=== PATIENT | female | born 1935 | race Caucasian/White ===

== ENCOUNTER 2017-10-28 14:06 | Inpatient (IN) | payer OTHER, MEDICARE ==
[~2017-10-28] VITALS: Ht 152.4 cm; Wt 71.4 kg
[~2017-10-28 14:06] MED LIST: ADVAIR HFA 115-12 GM PO; AMLODIPINE BESYL5 M1 PO; ATENOLOL50 M1 PO; ATORVASTATIN CA10 M1 PO; CITALOPRAM HBR20 MG PO; CLOPIDOGREL75 M1 PO; GABAPENTIN300 M2 PO; HYDROCHLOROTH12.5 M3 PO; METFORMIN HCL500 M3 PO; NAPROXEN375 M2 PO; PROAIR HFA8.5 GM INH; SPIRIVA18 MCG INH
[2017-10-28 14:40] LABS: ABSOLUTE BASOPHIL COUNT 0.1 /CUMM (0.0-0.2); ABSOLUTE EOSINOPHIL COUNT 0.1 /CUMM (0.0-0.7); ABSOLUTE LYMPH COUNT 1.9 /CUMM (1.2-3.4); ABSOLUTE MONOCYTE COUNT 0.8 /CUMM (0.10-0.60); BASOPHIL % 0.5 % (0.0-2.0); EOSINOPHIL % 0.9 % (0-5); GRANULOCYTE % 75.7 % (42.2-75.2); MEAN CORPUSCULAR HGB 31.9 PG (27.0-31.0); MEAN CORPUSCULAR HGB CONC 33.9 G/DL (33.0-37.0); MEAN PLATELET VOLUME 8.7 FL (7.4-10.4); PLATELET COUNT 235 /CUMM (130-400); RBC DISTRIBUTION WIDTH 13.7 % (11.5-14.5); RED BLOOD CELL CT 4.26 /CUMM (4.20-5.40); WHITE BLOOD CELL COUNT 11.9 /CUMM (4.8-10.8)
--- NOTE | 2017-10-28 18:35 | ED HAND/WRIST INJURY COMPLAINT ---
See Addendum History of Present Illness General Chief Complaint: Animal/Insect Bite Stated Complaint: CAT BITE Source: patient, Exam Limitations: no limitations Vital Signs & Intake/Output Vital Signs & Intake/Output Vital Signs Date Time Temp Pulse Resp B/P B/P Pulse O2 O2 Flow FiO2 Mean Ox Delivery Rate 10/28 1813 98.2 76 24 190/102 92 Room Air 10/28 1432 97.7 79 18 169/63 92 Allergies Coded Allergies: lisinopril (Severe, THROAT AND TONGUE SWELLING 03/13/17) Reconcile Medications Albuterol Sulfate (Proair Hfa) 90 MCG HFA.AER.AD 2 PUF INH Q6-PRN PRN SHORTNESS OF BREATH (Reported) Amlodipine Besylate 5 MG TABLET 1 TAB PO DAILY HEART (Reported) Atenolol 50 MG TABLET 1 TAB PO DAILY HEART (Reported) Atorvastatin Calcium 10 MG TABLET 4 TAB PO QPM CHOLESTEROL (Reported) Citalopram Hydrobromide (Citalopram HBr) 20 MG TABLET 1 TAB PO DAILY MENTAL HEALTH (Reported) Clopidogrel Bisulfate (Clopidogrel) 75 MG TABLET 1 TAB PO DAILY BLOOD THINNER (Reported) Fluticasone Propionate/Sal[place] (Advair Hfa 115-21 Mcg Inhaler) 115 MCG-21 MCG/ ACTUATION HFA.AER.AD 2 PUFF PO BID BREATHING PROBLEMS (Reported) Gabapentin 300 MG CAPSULE 3 CAP PO TID UNKNOWN (Reported) Hydrochlorothiazide 12.5 MG CAPSULE 1 CAP PO DAILY WATER RETENTION (Reported) Metformin HCl 500 MG TABLET 1 TAB PO Q48 DIABETES (Reported) Naproxen 375 MG TABLET 1 TAB PO BID PRN PAIN with food Tiotropium [place] (Spiriva) 18 MCG CAP.W.DEV 1 CAP INH DAILY BREATHING PROBLEMS (Reported) Triage Note: PT STATES HER CAT BIT HER FRIDAY EVENING IN THE LEFT HAND. HAND RED WARM AND SWOLLEN VERY PAINFUL PT HAS BEEN ON ABX FROM THE WALK IN FROM LAST NIGHT. Triage Nurses Notes Reviewed? yes Occurred: friday (ROUGHLY 3 DAYS AGO) Duration: day(s):, constant, continues in ED, getting worse Severity: severe Method of Injury: CAT BITE HPI: PATIENT PRESENTS FOR EVALUATION OF WORSENING SWELLING AND REDNESS AFTER A CAT BITE ON friday. tHE CAT IS THE PATIENT'S house cat that occasionally goes outside. The cat is not ill at this time and according to the patient's often will lash out at his while she is petting it. Past History Travel History Traveled to [place] past 21 day No Medical History Any Pertinent Medical History? see below for history Neurological: NONE EENT: NONE Cardiovascular: hypertension Respiratory: COPD Gastrointestinal: NONE Hepatic: NONE Renal: NONE Musculoskeletal: NONE Psychiatric: NONE Endocrine: diabetes Blood Disorders: NONE Cancer(s): NONE RN INFORMATICS/Reproductive: NONE Surgical History Surgical History: non-contributory Psychosocial History What is your primary language Amharic Tobacco Use: Never used ETOH Use: denies use Illicit Drug Use: denies illicit drug use Family History Hx Contributory? No Review of Systems Review of Systems Constitutional: Reports: no symptoms. EENTM: Reports: no symptoms. Respiratory: Reports: no symptoms. Cardiovascular: Reports: no symptoms. GI: Reports: no symptoms. Genitourinary: Reports: no symptoms. Musculoskeletal: Reports: no symptoms. Skin: Reports: see HPI. Neurological/Psychological: Reports: no symptoms. Hematologic/Endocrine: Reports: no symptoms. Immunologic/Allergic: Reports: no symptoms. All Other Systems: Reviewed and Negative Physical Exam Physical Exam Hand Left: SEE BELOW Hand Right: normal inspection Comments: Gen.: Well-nourished, well-developed, no acute respiratory distress. Head: Normocephalic, atraumatic. Eyes: Normal inspection bilaterally Ears: Normal inspection bilaterally Nose: Normal inspection Throat/mouth : Moist mucosa Neck: Supple, full range of motion, no goiter Heart: Regular rate and rhythm Lungs: Quiet respirations Back: Normal range of motion Extremities: Left hand: Diffuse edema with mild erythema and warmth particularly over the dorsal aspect of the left hand. Scattered ecchymoses. Decreased range of motion of the left hand secondary to pain and swelling. Neurologic: Cranial nerves grossly intact, speech is clear Skin: warm and dry Psychiatric: Calm, cooperative, no apparent delusions or hallucinations Progress Differential Diagnosis: cellulitis, contusion, compartment syndrome, fracture, septic arthritis, sprain, tenosynovitis Plan of Care: Orders Procedure Date/time Status Add-on Test (ER Only) 10/28 175 Active BLOOD CULTURE 10/28 175 Active EKG 10/28 175 Active TROPONIN LEVEL 10/28 1436 Complete LACTIC ACID 10/28 143 Complete COMPREHENSIVE METABOLIC PANEL 10/28 1435 Complete CBC WITHOUT DIFFERENTIAL 10/28 1435 Complete Laboratory Tests 10/28/17 1436: Anion Gap 12, Estimated GFR > 60, BUN/Creatinine Ratio 26.3 H, Glucose 96, Lactic Acid 1.9, Calcium 9.0, Total Bilirubin 0.8, AST 24, ALT 12, Alkaline Phosphatase 94, Troponin I < 0.01, Total Protein 7.3, Albumin 4.0, Globulin 3.3, Albumin/Globulin Ratio 1.2, CBC w Diff NO MAN DIFF REQ, RBC 4.26, MCV 94.0, MCH 31.9 H, MCHC 33.9, RDW 13.7, MPV 8.7, Gran % 75.7 H, Lymphocytes % 15.9 L, Monocytes % 7.0, Eosinophils % 0.9, Basophils % 0.5, Absolute Granulocytes 9.0 H, Absolute Lymphocytes 1.9, Absolute Monocytes 0.8 H, Absolute Eosinophils 0.1 , Absolute Basophils 0.1 Microbiology 10/28 1925 BLOOD: Blood Culture - RECD 10/28 1758 BLOOD: Blood Culture - ORD Diagnostic Imaging: Discussed w/RAD: Radiology Read. Radiology Impression: PATIENT: CELENA ROSENBERG PRESENT AGE: 82 PATIENT ACCOUNT NO: [id number] : 36 LOCATION: [facility] ORDERING PHYSICIAN: Walter AUGUSTE SERVICE DATE: 10/28/17 EXAM TYPE: RAD - XRY-HAND, LEFT EXAMINATION: XR HAND, LEFT CLINICAL INFORMATION: Pain and swelling. Redness of the hand after a cat bite COMPARISON: None TECHNIQUE: PA, lateral, and oblique views of the left hand. FINDINGS: There is soft tissue swelling at the dorsum of the hand. There is no radiopaque foreign body. There is no air in the soft tissue. There is no bone destruction or evidence radiographically for osteomyelitis. There is advanced degenerative change. Joint narrowing bone spur is subchondral sclerosis is present at the first metacarpal carpal joint. There is mild joint narrowing and bone spurring at the IP joints of the digits. There is an old healed fracture of the distal radius with residual deformity. The old fracture fragment at the ulnar styloid is nonunited. IMPRESSION: 1. Soft tissue swelling of dorsum of hand. No radiopaque foreign body or air in the soft tissue. No radiographic evidence for osteomyelitis. 2. Degenerative changes of the hand and wrist. 3. Old fracture of the distal radius and ulna. DICTATED BY: Chong Sofia MD DATE/TIME DICTATED:10/28/171857 [employer] SUPERVISOR:LORETTA DATE/TIME TRANSCRIBED:10/28/171857 CONFIDENTIAL, DO NOT COPY WITHOUT APPROPRIATE AUTHORIZATION. <Electronically signed in Other Vendor System> SIGNED BY: Chong Sofia MD 10/28/171902 CXR Impression: PATIENT: CELENA ROSENBERG PRESENT AGE: 82 PATIENT ACCOUNT NO: [id number] : 36 LOCATION: [facility] ORDERING PHYSICIAN: Walter AUGUSTE SERVICE DATE: 10/28/17 EXAM TYPE: RAD - XRY-CHEST XRAY, TWO VIEWS EXAMINATION: XR CHEST CLINICAL INFORMATION: Cough. COMPARISON: Chest x -ray 05/01/2016 TECHNIQUE: 2 views of the chest were obtained. FINDINGS: Status post median sternotomy for CABG. Heart size is normal. There is vascular wall calcifications of aorta. There is no pulmonary vascular congestion. There is no infiltrate or pleural effusion. There is degenerative spondylosis spine with multilevel disc height narrowing and endplate spurring of the vertebrae. There is advanced degenerative change of the left glenohumeral joint. The humeral head and glenoid subchondral sclerosis and cystic change with remodeling of the articular surfaces of the bone and large bone spurs. There is mild degenerative joint disease of the right glenohumeral joint. IMPRESSION: No acute abnormality of the chest. DICTATED BY: Chong Sofia MD DATE/TIME DICTATED:10/28/171899 [employer] SUPERVISOR:LORETTA DATE/TIME TRANSCRIBED:10/28/171899 CONFIDENTIAL, DO NOT COPY WITHOUT APPROPRIATE AUTHORIZATION. <Electronically signed in Other Vendor System> SIGNED BY: Chong Sofia MD 10/28/171904 Comments: 10/28/2017 7:38:25 PM IV antibiotics infusing. Patient appears comfortable. Of note, I feel this is a very low risk bite for rabies. Departure Departure Disposition: STILL A PATIENT Condition: Stable Clinical Impression Primary Impression: Cellulitis of left hand Secondary Impressions: Cat bite of left hand Qualifiers: Encounter type: initial encounter Qualified Codes: S61.452A - Open bite of left hand, initial encounter; W55.01XA - Bitten by cat, initial encounter Referrals: Chauncey-Prince MD,Hilaria (PCP/Family) Departure Forms: Customer Survey General Discharge Information Admission Note Spoke With: Isa Burleson MD Documentation of Exam: Documentation of any treatments & extenuating circumstances including Concerns Regarding Discharge (functional status, medication knowledge or non-compliance, living conditions, etc.) that warrant an admission rather than observation: Patient presents with worsening left hand swelling and redness secondary to a cat bite. Patient has been on Augmentin but has not improved (she has failed outpatient management). Given the potential disability to the left hand ( particularly with Teno synovitis), I feel this patient now requires hospitalization for an aggressive management with IV antibiotics and close clinical monitoring for response to treatment. Patient should have vital signs monitored for the possibility of fever. Culture results should be followed and treatment adjusted accordingly. If patient does not respond appropriately to IV antibiotics then infectious disease and/or hand surgical consultation should be obtained. Given the patient's advanced age and associated medical comorbidities I feel her treatment and recovery will likely be prolonged and somewhat complicated. It is also possible that she might require physical therapy depending on her recovery. She will require a multiple day hospitalization.
--- NOTE | 2017-10-28 19:03 | RADIOLOGY REPORT ---
EXAMINATION: XR HAND, LEFT CLINICAL INFORMATION: Pain and swelling. Redness of the hand after a cat bite COMPARISON: None TECHNIQUE: PA, lateral, and oblique views of the left hand. FINDINGS: There is soft tissue swelling at the dorsum of the hand. There is no radiopaque foreign body. There is no air in the soft tissue. There is no bone destruction or evidence radiographically for osteomyelitis. There is advanced degenerative change. Joint narrowing bone spur is subchondral sclerosis is present at the first metacarpal carpal joint. There is mild joint narrowing and bone spurring at the IP joints of the digits. There is an old healed fracture of the distal radius with residual deformity. The old fracture fragment at the ulnar styloid is nonunited. IMPRESSION: 1. Soft tissue swelling of dorsum of hand. No radiopaque foreign body or air in the soft tissue. No radiographic evidence for osteomyelitis. 2. Degenerative changes of the hand and wrist. 3. Old fracture of the distal radius and ulna.
--- NOTE | 2017-10-28 19:05 | RADIOLOGY REPORT ---
EXAMINATION: XR CHEST CLINICAL INFORMATION: Cough. COMPARISON: Chest x-ray 05/01/2016 TECHNIQUE: 2 views of the chest were obtained. FINDINGS: Status post median sternotomy for CABG. Heart size is normal. There is vascular wall calcifications of aorta. There is no pulmonary vascular congestion. There is no infiltrate or pleural effusion. There is degenerative spondylosis spine with multilevel disc height narrowing and endplate spurring of the vertebrae. There is advanced degenerative change of the left glenohumeral joint. The humeral head and glenoid subchondral sclerosis and cystic change with remodeling of the articular surfaces of the bone and large bone spurs. There is mild degenerative joint disease of the right glenohumeral joint. IMPRESSION: No acute abnormality of the chest.
--- NOTE | 2017-10-28 20:09 | History & Physical ---
Brandon Kellogg 10/28/172008: General Information and HPI History of Present Illness: Ms. Townsend is a 82 yo f with a PMH significant for CAD s/p triple bypass (2009 [place]), left carotid stenosis, DM, HTN, COPD not on home oxygen who presents to the ED after a cat bite Friday. She reports pain 9/10 in severity and is unable to flex her fingers. Patient reports she has 2 cats at home and after petting one of her cats it bit her on the left hand. She went to an urgent care and was given Augmentin which she took 3 doses of but noticed an increased in the amount of swelling today. Patient reports she has had her cat for 13 years and has not seen a wildland fire fighter specialist or received vaccinations "in years". She also reports 2 weeks ago the same cat bit her and she used Neosporin for the wound. Her cat is normally home bound and seldomly goes outside. She denies blurry vision, drooling, nausea, vomiting, paresthesias, weakness, urinary or bowel symptoms. Allergies/Medications Allergies: Coded Allergies: lisinopril (Severe, THROAT AND TONGUE SWELLING 03/13/17) Home Med list Albuterol Sulfate (Proair Hfa) 90 MCG HFA.AER.AD 2 PUF INH Q6-PRN PRN SHORTNESS OF BREATH (Reported) Amlodipine Besylate 5 MG TABLET 1 TAB PO DAILY HEART (Reported) Atenolol 50 MG TABLET 1 TAB PO DAILY HEART (Reported) Atorvastatin Calcium 10 MG TABLET 4 TAB PO QPM CHOLESTEROL (Reported) Citalopram Hydrobromide (Citalopram HBr) 20 MG TABLET 1 TAB PO DAILY MENTAL HEALTH (Reported) Clopidogrel Bisulfate (Clopidogrel) 75 MG TABLET 1 TAB PO DAILY BLOOD THINNER (Reported) Fluticasone Propionate/Salme (Advair Hfa 115-21 Mcg Inhaler) 115 MCG-21 MCG/ ACTUATION HFA.AER.AD 2 PUFF PO BID BREATHING PROBLEMS (Reported) Gabapentin 300 MG CAPSULE 3 CAP PO TID UNKNOWN (Reported) Metformin HCl 500 MG TABLET 1 TAB PO Q48 DIABETES (Reported) Past History Travel History Traveled to [place] past 21 day No Medical History Neurological: NONE EENT: NONE Cardiovascular: hypertension Respiratory: COPD Gastrointestinal: NONE Hepatic: NONE Renal: NONE Musculoskeletal: NONE Psychiatric: NONE Endocrine: diabetes Blood Disorders: NONE Cancer(s): NONE CARE TRAINER/Reproductive: NONE Surgical History Surgical History: non-contributory Past Family/Social History Psychosocial History ETOH Use: denies use Illicit Drug Use: denies illicit drug use Review of Systems Review of Systems Constitutional: Reports: see HPI. Exam & Diagnostic Data Last 24 Hrs of Vital Signs/I&O Vital Signs Date Time Temp Pulse Resp B/P B/P Pulse O2 O2 Flow FiO2 Mean Ox Delivery Rate 10/29 0104 98.9 74 148/69 10/28 2245 98.9 74 20 148/64 95 10/28 2216 98.8 71 22 162/58 92 Room Air 10/28 1959 92 10/28 1813 98.2 76 24 190/102 92 Room Air 10/28 1432 97.7 79 18 169/63 92 Intake & Output 10/29 0800 10/29 0000 10/28 1600 Intake Total 200 Output Total Balance 200 Intake, Oral 200 Patient 155 lb 150 lb Weight Weight Bed scale Reported by Patient Measurement Method Physical Exam General Appearance Alert, Oriented X3, Cooperative, No Acute Distress Skin Thoracotomy scar Neck Supple, No LAD Lymphatic Axillary nl, Cervical nl Cardiovascular Regular Rate, Normal S1, Normal S2 Lungs bilateral wheezing Extremities left hand swelling with mild skin erythema. Unable to flex left fingers , ulnar deviation Last 24 Hrs of Labs/Kendrick: Laboratory Tests 10/28/17 1436: Anion Gap 12, Estimated GFR > 60, BUN/Creatinine Ratio 26.3 H, Glucose 96, Lactic Acid 1.9, Calcium 9.0, Total Bilirubin 0.8, AST 24, ALT 12, Alkaline Phosphatase 94, Troponin I < 0.01, Total Protein 7.3, Albumin 4.0, Globulin 3.3, Albumin/Globulin Ratio 1.2, CBC w Diff NO MAN DIFF REQ, RBC 4.26, MCV 94.0, MCH 31.9 H, MCHC 33.9, RDW 13.7, MPV 8.7, Gran % 75.7 H, Lymphocytes % 15.9 L, Monocytes % 7.0, Eosinophils % 0.9, Basophils % 0.5, Absolute Granulocytes 9.0 H, Absolute Lymphocytes 1.9, Absolute Monocytes 0.8 H, Absolute Eosinophils 0.1 , Absolute Basophils 0.1 Microbiology 10/28 1944 BLOOD: Blood Culture - RECD 10/28 1925 BLOOD: Blood Culture - RECD Diagnostic Data EKG Results SR, HR 71, QTc 466 CXR Results FINDINGS: Status post median sternotomy for CABG. Heart size is normal. There is vascular wall calcifications of aorta. There is no pulmonary vascular congestion. There is no infiltrate or pleural effusion. There is degenerative spondylosis spine with multilevel disc height narrowing and endplate spurring of the vertebrae. There is advanced degenerative change of the left glenohumeral joint. The humeral head and glenoid subchondral sclerosis and cystic change with remodeling of the articular surfaces of the bone and large bone spurs. There is mild degenerative joint disease of the right glenohumeral joint. IMPRESSION: No acute abnormality of the chest. Other Results XR HAND, LEFT FINDINGS: There is soft tissue swelling at the dorsum of the hand. There is no radiopaque foreign body. There is no air in the soft tissue. There is no bone destruction or evidence radiographically for osteomyelitis. There is advanced degenerative change. Joint narrowing bone spur is subchondral sclerosis is present at the first metacarpal carpal joint. There is mild joint narrowing and bone spurring at the IP joints of the digits. There is an old healed fracture of the distal radius with residual deformity. The old fracture fragment at the ulnar styloid is nonunited. IMPRESSION: 1. Soft tissue swelling of dorsum of hand. No radiopaque foreign body or air in the soft tissue. No radiographic evidence for osteomyelitis. 2. Degenerative changes of the hand and wrist. 3. Old fracture of the distal radius and ulna. Assessment/Plan Assessment: Ms. Townsend is a 82 yo f with a PMH significant for CAD s/p triple bypass (2009), left carotid stenosis, DM, HTN, COPD not on home oxygen who presents to the ED after a cat bite with worsening swelling while on oral Augmentin. On admission she had leukocytosis and a left hand x-ray consistent with cellulitis without subcutaneous emphysema. She was given 3 g Unasyn in the ED. Problem list: Left hand cat bite Left hand cellulitis Plan: Admit to general med for further evaluation and management IV Unasyn TRC/nebs PRN Accu-Cheks and NovoLog sliding scale Continue home meds Blood cultures x 2 Plastic surgery consult Pain: Tramadol Diet: Diabetic DVT ppx: sc Enoxaparin Code: FULL As Ranked By This Provider Problem List: 1. Cat bite of left hand Qualifiers Encounter type: initial encounter Qualified Codes: S61.452A - Open bite of left hand, initial encounter; W55.01XA - Bitten by cat, initial encounter 2. Cellulitis of left hand Core Measures/Misc (04/06) Acute Coronary Syndrome ACS Diagnosis: No Congestive Heart Failure Congestive Heart Failure Diagnosis No Cerebrovascular Accident CVA/TIA Diagnosis: No VTE (View Protocol) VTE Risk Factors Age>40 No Mechanical VTE Prophylaxis d/t N/A MechProphylax Ordered No VTE Pharm Prophylaxis d/t NA PharmProphylax ordered Sepsis (View protocol) Sepsis Present: No Louie Jacobson 10/29/17 0436: Resident Review Statement Resident Statement: examined this patient, discussed with internet sales manager, reviewed images Other Findings: 82 woman with past medical history significant for for CAD s/p triple bypass ( 2009), left carotid stenosis, [id number] diabetes mellitus, HTN, COPD not on home oxygen coming in for evaluation of cat bite. She probably has 2 cats at home and one of the cats has a tendency to bite. She had a bite 2 weeks prior which healed with Neosporin. However she was bitten 2 days prior on her left hand and this time the bite was significant. She had worsening swelling and redness of her hand with decreased range of movements. She went to a urgent care yesterday and was given ampicillin but she did not feel better and so she decided to come to the ED. She denies nausea vomiting fever, tingling numbness or decreased sensations, bowel or bladder symptoms. On interview pain was 7 out of 10. Of note the cat has not been vaccinated with rabies although the temperature shot since the past 4 years. Vitals afebrile, heart rate 76, respiratory 24, blood pressure 190/102, 92% on room air Examination pertinent for left hand swelling with redness with intact sensation and normal pulses. Malunion deformity was noted of her left hand and this is due to a fracture that occurred 2 years ago. Her right hand had scars from her previous bite. Rest of examination as above Labs significant for white count of 11.9, hemoglobin 13.6, hematocrit 40.0, platelet 233, sodium 142, potassium 3.8, chloride 105, bicarbonate 25, BUN 21, creatinine 0.8, normal LFTs, troponin 0.01 EKG shows normal sinus rhythm, QTC 466 Chest x-ray no shift acute abnormality Had x-ray shows soft tissue swelling Problem list: Cellulitis secondary to animal bite Diabetes mellitus Hypertension COPD Plan: Mid to general medicine floor, vitals per protocol TRC/ nebs Will continue with IV Unasyn, pending blood cultures Plastic surgery consult in the morning Pain control with tramadol and IV morphine when necessary as needed Accu-Cheks, insulin sliding scale, diabetic diet Continue home medication of Norvasc, atenolol, Citracal upon them, Plavix, gabapentin Will hold metformin DVT prophylaxis subcutaneous Lovenox Full code Isa Burleson 10/29/17 0530: Attending MD Review Statement Attending Statement Attending MD Statement: examined this patient, discuss w/resident/PA/REWRITER, agreed w/resident/PA/REWRITER, reviewed EMR data (avail), reviewed images, amended to note Attending Assessment/Plan: CC: CAD bite PMH: COPD, DM, CAD S/P CABG, left carotid stenosis Patient came to ER for worsening left hand swelling after cat bite. Her house cat bit her on Friday, approximately 4 days back on left hand. She saw that the swelling and pain was getting worse or she went to urgent care where she was prescribed Augmentin. She took 3 doses of antibiotic, without much relief her left hand pain, redness, swelling was worsening so she came to ER. Patient denies any fever or chills at home. The cat is domestic and homebound but vaccination status is unclear. She has multiple cat scratches and bites on her both hands, previous bite was 15 days back for which she used Neosporin and which improved. Otherwise complete ROS unremarkable. Vitals: Afebrile, pulse 79, RR 18, blood pressure 169/63, saturating 92% on room air. On exam: A O 3, cooperative, anxious due to pain, neck supple, JVD normal, no lymphadenopathy, mucosa moist, no focal neurological deficit, no dependent edema , left hand is swollen mostly on the dorsal aspect, red , warm to touch, ROM is restricted carpometacarpal joint and first PIP in all fingers but more so in index finger, peripheral pulses palpable, perfusion time normal , left wrist deformity secondary to previous fracture CVS: S1-S2, RRR, systolic murmur in aortic area. RS: Mild wheezing bilaterally. Abdomen: Soft, NT, ND, bowel sounds present. CXR: No acute abnormality of the chest. Left Hand x-ray: 1. Soft tissue swelling of dorsum of hand. No radiopaque foreign body or air in the soft tissue. No radiographic evidence for osteomyelitis. 2. Degenerative changes of the hand and wrist. 3. Old fracture of the distal radius and ulna. Assessment and plan 82-year-old female with multiple comorbidities mentioned above came with worsening of redness, pain, swelling of left hand after cat bite. On examination left hand appear significantly inflamed, area marked. left hand is swollen mostly on the dorsal aspect, red , warm to touch, ROM is restricted carpometacarpal joint and first PIP in all fingers but more so in index finger, peripheral pulses palpable, perfusion time normal , left wrist deformity secondary to previous fracture. Patient took 3 doses of Augmentin at home without much improvement. We will continue IV Unasyn, get plastic surgeon consult. + Cellulitis secondary to cat bite left hand + History of COPD, DM, CAD S/P CABG, left carotid stenosis - Admit to general medicine - Continue IV Unasyn - Keep hand elevated - Follow-up cultures - Serial examinations - Plastic surgery consult in morning - Adequate pain control - Sliding scale insulin - Continue rest of her home medications - DVT prophylaxis
[2017-10-28 22:45] VITALS: BP 148/64
--- NOTE | 2017-10-29 05:32 | Admission Certification ---
Admission Certification Certification Statement - As attending physician, I certify that at the time of - admission, based on clinical presentation, severity of - symptoms, need for further diagnostic testing and - therapeutic interventions, and risk of adverse outcomes - without in-hospital treatment, in my clinical assessment, - this patient requires an acute hospital stay for a minimum - of two nights or longer. I have also considered psychsocial - factors such as support system, advanced age, financial - issues, cognitive issues, and failed out-patient treatments, - past re-admission history, safety of patient, and lack of - compliance as applicable. Specific rationale supporting this admission is: Cellulitis left hand secondary to cat bite
[2017-10-29 06:00] VITALS: BP 130/60; BP 180/70
[2017-10-29 06:42] VITALS: BP 180/70
[2017-10-29 08:41] LABS: ABSOLUTE BASOPHIL COUNT 0 /CUMM (0.0-0.2); ABSOLUTE EOSINOPHIL COUNT 0.1 /CUMM (0.0-0.7); ABSOLUTE GRANULOCYTE CT 8.1 /CUMM (1.4-6.5); ABSOLUTE LYMPH COUNT 1.2 /CUMM (1.2-3.4); ABSOLUTE MONOCYTE COUNT 0.6 /CUMM (0.10-0.60); BASOPHIL % 0.3 % (0.0-2.0); EOSINOPHIL % 1.1 % (0-5); GRANULOCYTE % 80.3 % (42.2-75.2); HEMATOCRIT 36.1 % (37-47); MEAN CORPUSCULAR HGB 31.8 PG (27.0-31.0); MEAN CORPUSCULAR HGB CONC 33.6 G/DL (33.0-37.0); MEAN CORPUSCULAR VOLUME 94.8 FL (81.0-99.0); MEAN PLATELET VOLUME 9.1 FL (7.4-10.4); PLATELET COUNT 225 /CUMM (130-400); RBC DISTRIBUTION WIDTH 14.1 % (11.5-14.5); RED BLOOD CELL CT 3.81 /CUMM (4.20-5.40); WHITE BLOOD CELL COUNT 10.1 /CUMM (4.8-10.8)
--- NOTE | 2017-10-29 09:28 | PN- Housestaff ---
Subjective Follow-up For: hand cat bite with cellulitis Subjective: No acute events overnight. States that the swelling of her hand has decreased. states that she had some loose stool.also complains of back pain. Review of Systems Constitutional: Reports: see HPI. Objective Last 24 Hrs of Vital Signs/I&O Vital Signs Date Time Temp Pulse Resp B/P B/P Pulse O2 O2 Flow FiO2 Mean Ox Delivery Rate 10/29 1649 92 Nasal 2.0L Cannula 10/29 1600 Nasal 1.0L Cannula 10/29 1529 97.9 64 20 110/60 91 10/29 1150 Room Air 10/29 1150 91 Room Air 10/29 0920 70 168/80 10/29 0920 70 168/80 10/29 0642 98.0 63 20 180/70 92 Room Air 10/29 0600 63 20 180/70 10/29 0104 98.9 74 148/69 10/28 2245 98.9 74 20 148/64 95 10/28 2216 98.8 71 22 162/58 92 Room Air 10/28 1959 92 10/28 1813 98.2 76 24 190/102 92 Room Air Intake & Output 10/29 1600 10/29 0800 10/29 0000 Intake Total 1430 600 200 Output Total 500 Balance 1430 100 200 Intake, IV 130 300 Intake, Oral 1300 300 200 Number 1 2 Bowel Movements Output, Urine 500 Patient 155 lb 155 lb Weight Weight Bed scale Bed scale Measurement Method Physical Exam General Appearance: Alert, Oriented X3, Cooperative, No Acute Distress Skin: left hand bite vail and erythema. Tender to palpation of the hand. Cardiovascular: Regular Rate, Normal S1, Normal S2 Lungs: bilateral basal crackles and diffuse wheezing. Abdomen: Normal Bowel Sounds, Soft, No Tenderness Vascular: right 2+ radial pulses. Did not assess left radial pulse as patient was reluctant due to pain. cap Refill of left hand less than 2 seconds. Current Medications: Current Medications Sig/Romy Start time Last Medication Dose Route Stop Time Status Admin Acetaminophen 0 .STK-MED ONE 10/28 1806 DC IV Acetaminophen 1,000 MG ONCE ONE 10/28 1800 DC 10/28 N/A 1 UNIT IV 10/28 1813 180 Albuterol Sulfate 3 ML Q4P PRN 10/29 1145 AC 10/29 INH 1148 Albuterol Sulfate 3 ML ONCE ONE 10/28 1800 DC 10/28 INH 10/28 1801 1916 Amlodipine Besylate 5 MG DAILY 10/29 1000 AC 10/29 PO 0920 Ampicillin Sodium/ 3,000 MG Q6H 10/29 0100 AC 10/29 Sulbactam Sodium IV 1300 Sodium Chloride 100 ML Ampicillin Sodium/ 0 .STK-MED ONE 10/28 180 DC Sulbactam Sodium .ROUTE Ampicillin Sodium/ 3,000 MG ONCE ONE 10/28 1800 DC 10/28 Sulbactam Sodium IV 10/28 1829 1959 Sodium Chloride 100 ML Atenolol 50 MG DAILY 10/28 2153 AC 10/29 PO 0920 Atorvastatin Calcium 40 MG QPM 10/28 2200 AC 10/29 PO 0103 Budesonide/ 2 PUF BID 10/28 2199 AC 10/29 Formoterol Fumarate INH 09 Citalopram 20 MG DAILY 10/28 2153 AC 10/29 Hydrobromide PO 0920 Clopidogrel Bisulfate 75 MG DAILY 10/29 1000 AC 10/29 PO 0924 Enoxaparin Sodium 40 MG DAILY 10/29 1000 AC 10/29 SC 0921 Gabapentin 900 MG TID 10/28 2200 AC 10/29 PO 1541 Insulin Aspart 0 TIDAC 10/29 0800 AC SC Ipratropium [place] 2.5 ML ONCE ONE 10/28 1800 DC 10/28 INH 10/28 1801 1915 Lactobacillus 1 CAP DAILY 10/29 1000 AC 10/29 Acidophilus PO 1133 Melatonin 5 MG ONCE ONE 10/29 0230 DC 10/29 PO 10/29 0231 0224 Potassium Chloride 40 MEQ ONCE ONE 10/29 1515 DC 10/29 PO 10/29 1516 1541 Tramadol HCl 50 MG Q6 10/29 1200 AC 10/29 PO 1259 Tramadol HCl 50 MG ONE TIME ONE 10/29 0330 DC 10/29 PO 10/29 0331 0330 Last 24 Hrs of Lab/Kendrick Results Last 24 Hrs of Labs/Mics: Laboratory Tests 10/29/17 0622: Anion Gap 13, Estimated GFR > 60, BUN/Creatinine Ratio 20.0, CBC w Diff NO MAN DIFF REQ, RBC 3.81 L, MCV 94.8, MCH 31.8 H, MCHC 33.6, RDW 14.1, MPV 9.1, Gran % 80.3 H, Lymphocytes % 12.3 L, Monocytes % 6.0, Eosinophils % 1.1, Basophils % 0.3, Absolute Granulocytes 8.1 H, Absolute Lymphocytes 1.2, Absolute Monocytes 0.6, Absolute Eosinophils 0.1, Absolute Basophils 0 Microbiology 10/28 1944 BLOOD: Blood Culture - RES 10/28 1925 BLOOD: Blood Culture - RES Assessment/Plan Assessment: Ms. Townsend is a 82 yo f with a PMH significant for CAD s/p triple bypass (2009 [place]), left carotid stenosis, DM, HTN, COPD not on home oxygen who presents to the ED after a cat bite with worsening swelling while on oral Augmentin x2 days. Problem list: Left hand cat bite with cellulitis Shortness of breath Plan: -hand xr: Soft tissue swelling of dorsum of hand. No evidence for osteomyelitis. -cxr: negative for any caute pathology -added probiotic for loose stool. Will consider C. difficile things have stool. -seen by plastics. outpatient f.u -f/u blood cx -cellulitis improving on IV Unasyn -TRC/nebs PRN -Accu-Cheks and NovoLog sliding scale -Continue home meds DVT ppx: sc Enoxaparin Code: FULL Problem List: 1. Cat bite of left hand 2. Cellulitis of left hand Pain Ratin Pain Location: l hand Pain Goal: Pain 4 or less Pain Plan: pain pathway Tomorrow's Labs & Rationales: cbc
--- NOTE | 2017-10-29 11:04 | PN- Att Addend ---
Attending Addendum Attending Brief Note Patient seen and examined, feeling overall better. The left hand looks better than before. It is still painful on range of motion. Vital Signs Date Time Temp Pulse Resp B/P B/P Pulse O2 O2 Flow FiO2 Mean Ox Delivery Rate 10/30 919 70 168/80 10/29 0920 70 168/80 10/29 0642 98.0 63 20 180/70 92 Room Air 10/29 0600 63 20 180/70 10/29 0104 98.9 74 148/69 10/28 2245 98.9 74 20 148/64 95 10/28 2216 98.8 71 22 162/58 92 Room Air 10/28 1959 92 10/28 1813 98.2 76 24 190/102 92 Room Air 10/28 1432 97.7 79 18 169/63 92 on exam: aox3, nad. cv; s1,s2, rrr resp; clear abd; soft, nt, bs+ ext; no edema Laboratory Tests 10/29 10/28 0622 1436 Chemistry Sodium (137 - 145 mmol/L) 144 142 Potassium (3.5 - 5.1 mmol/L) 3.6 3.8 Chloride (98 - 107 mmol/L) 108 H 105 Carbon Dioxide (22 - 30 mmol/L) 23 25 Anion Gap (5 - 16) 13 12 BUN (7 - 17 mg/dL) 14 21 H Creatinine (0.5 - 1.0 mg/dL) 0.7 0.8 Estimated GFR (>60 ml/min) > 60 > 60 BUN/Creatinine Ratio (7 - 25 %) 20.0 26.3 H Glucose (65 - 99 mg/dL) 96 Lactic Acid (0.7 - 2.1 mmol/L) 1.9 Calcium (8.4 - 10.2 mg/dL) 9.0 Total Bilirubin (0.2 - 1.3 mg/dL) 0.8 AST (14 - 36 U/L) 24 ALT (9 - 52 U/L) 12 Alkaline Phosphatase (<127 U/L) 94 Troponin I (< 0.11 ng/ml) < 0.01 Total Protein (6.3 - 8.2 g/dL) 7.3 Albumin (3.5 - 5.0 g/dL) 4.0 Globulin (1.9 - 4.2 gm/dL) 3.3 Albumin/Globulin Ratio (1.1 - 2.2 %) 1.2 Hematology CBC w Diff NO MAN DIFF REQ NO MAN DIFF REQ WBC (4.8 - 10.8 /CUMM) 10.1 11.9 H RBC (4.20 - 5.40 /CUMM) 3.81 L 4.26 Hgb (12.0 - 16.0 G/DL) 12.1 13.6 Hct (37 - 47 %) 36.1 L 40.0 MCV (81.0 - 99.0 FL) 94.8 94.0 MCH (27.0 - 31.0 PG) 31.8 H 31.9 H MCHC (33.0 - 37.0 G/DL) 33.6 33.9 RDW (11.5 - 14.5 %) 14.1 13.7 Plt Count (130 - 400 /CUMM) 225 235 MPV (7.4 - 10.4 FL) 9.1 8.7 Gran % (42.2 - 75.2 %) 80.3 H 75.7 H Lymphocytes % (20.5 - 51.1 %) 12.3 L 15.9 L Monocytes % (1.7 - 9.3 %) 6.0 7.0 Eosinophils % (0 - 5 %) 1.1 0.9 Basophils % (0.0 - 2.0 %) 0.3 0.5 Absolute Granulocytes (1.4 - 6.5 /CUMM) 8.1 H 9.0 H Absolute Lymphocytes (1.2 - 3.4 /CUMM) 1.2 1.9 Absolute Monocytes (0.10 - 0.60 /CUMM) 0.6 0.8 H Absolute Eosinophils (0.0 - 0.7 /CUMM) 0.1 0.1 Absolute Basophils (0.0 - 0.2 /CUMM) 0 0.1 A/P; 82 y/o F with pmh sig for CAD s/p triple bypass (2009 [place]), left carotid stenosis, DM, HTN, COPD not on home oxygen, admitted with left hand cellulitis 2 /2 to cat bite, failing outpatient treatment. Patient is getting Unasyn which will be continued. We'll follow-up on the blood cultures. Plastic surgery consult is pending. Blood pressure high this morning, expect to come down after she sees her antihypertensives. Continue hand elevation. Continue the rest of the medications. Patient on Lovenox for DVT px. Patient encouraged to ambulate.
--- NOTE | 2017-10-29 13:13 | Cons- Plastic Surgery ---
General Information and HPI Consulting Request Date of Consult: 10/29/17 Requested By: Isa Burleson MD Reason for Consult: Cellulitis left hand Source of Information: patient History of Present Illness: Patient home. By Left Hand Previous Friday. Symptoms Worsened Including Pain and Redness and Presented to an Emergency Room for Evaluation. Was Started on Oral Antibiotics with Some Worsening Overnight and Then Presented to [facility] Emergency Room. She Was Admitted Began ON UnASYN with a Rapid Resolution of Swelling Pain and Redness. No fever chills reported Allergies/Medications Allergies: Coded Allergies: lisinopril (Severe, THROAT AND TONGUE SWELLING 03/13/17) Home Med List: Albuterol Sulfate (Proair Hfa) 90 MCG HFA.AER.AD 2 PUF INH Q6-PRN PRN SHORTNESS OF BREATH (Reported) Amlodipine Besylate 5 MG TABLET 1 TAB PO DAILY HEART (Reported) Atenolol 50 MG TABLET 1 TAB PO DAILY HEART (Reported) Atorvastatin Calcium 10 MG TABLET 4 TAB PO QPM CHOLESTEROL (Reported) Citalopram Hydrobromide (Citalopram HBr) 20 MG TABLET 1 TAB PO DAILY MENTAL HEALTH (Reported) Clopidogrel Bisulfate (Clopidogrel) 75 MG TABLET 1 TAB PO DAILY BLOOD THINNER (Reported) Fluticasone Propionate/Salme (Advair Hfa 115-21 Mcg Inhaler) 115 MCG-21 MCG/ ACTUATION HFA.AER.AD 2 PUFF PO BID BREATHING PROBLEMS (Reported) Gabapentin 300 MG CAPSULE 3 CAP PO TID UNKNOWN (Reported) Metformin HCl 500 MG TABLET 1 TAB PO Q48 DIABETES (Reported) Past History Medical History Blood Transfusion Hx: No Type of Reaction: Hives/Urticaria Neurological: NONE EENT: NONE Cardiovascular: hypertension Respiratory: COPD Gastrointestinal: NONE Hepatic: NONE Renal: NONE Musculoskeletal: NONE Psychiatric: NONE Endocrine: diabetes Blood Disorders: NONE Cancer(s): NONE 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 Home Smoking Status: Former Smoker ETOH Use: denies use Illicit Drug Use: denies illicit drug use Review of Systems Review of Systems: All of symptoms negative Exam & Diagnostic Data Vital Signs and I&O Vital Signs Date Time Temp Pulse Resp B/P B/P Pulse O2 O2 Flow FiO2 Mean Ox Delivery Rate 10/29 1150 Room Air 10/29 1150 91 Room Air 10/29 0920 70 168/80 10/29 0920 70 168/80 10/29 0642 98.0 63 20 180/70 92 Room Air 10/29 0600 63 20 180/70 10/29 0104 98.9 74 148/69 10/28 2245 98.9 74 20 148/64 95 10/28 2216 98.8 71 22 162/58 92 Room Air 10/28 1959 92 10/28 1813 98.2 76 24 190/102 92 Room Air 10/28 1432 97.7 79 18 169/63 92 Intake & Output 10/29 1600 10/29 0800 10/29 0000 10/28 1600 10/28 0800 10/28 0000 Intake Total 600 200 Output Total 500 Balance 100 200 Intake, IV 300 Intake, Oral 300 200 Number 2 Bowel Movements Output, Urine 500 Patient 155 lb 155 lb 150 lb Weight Weight Bed scale Bed scale Reported by Patient Measurement Method Physical Exam: Examination of the left upper extremity shows some resolving soft tissue edema in the left dorsal hand. Compared to the previous marked incline the erythema is resolving readily. She has some limited range of motion secondary to disuse and discomfort. She has small puncture sites on the dorsal radial aspect of the left hand without evidence of purulence or necrosis. Assessment/Plan Assessment/Plan Resolving soft tissue infection secondary to cat bite. Encouraged patient to begin using the hand and making a full fist to prevent a disuse syndrome. Washed with soap and water as needed. Follow-up office next week. Consult Acknowledgment - Thank you for your consult request.
[2017-10-29 15:29] VITALS: BP 110/60
[2017-10-29 21:49] VITALS: BP 164/60
[2017-10-30 06:33] VITALS: BP 140/66
[2017-10-30 08:54] LABS: ABSOLUTE BASOPHIL COUNT 0.1 /CUMM (0.0-0.2); ABSOLUTE EOSINOPHIL COUNT 0.3 /CUMM (0.0-0.7); ABSOLUTE LYMPH COUNT 1.6 /CUMM (1.2-3.4); ABSOLUTE MONOCYTE COUNT 0.8 /CUMM (0.10-0.60); BASOPHIL % 0.6 % (0.0-2.0); EOSINOPHIL % 3.5 % (0-5); GRANULOCYTE % 68.2 % (42.2-75.2); HEMATOCRIT 33.5 % (37-47); MEAN CORPUSCULAR HGB CONC 33.4 G/DL (33.0-37.0); MEAN CORPUSCULAR VOLUME 95.9 FL (81.0-99.0); MEAN PLATELET VOLUME 8.9 FL (7.4-10.4); PLATELET COUNT 231 /CUMM (130-400); RBC DISTRIBUTION WIDTH 14.2 % (11.5-14.5); RED BLOOD CELL CT 3.49 /CUMM (4.20-5.40); WHITE BLOOD CELL COUNT 8.8 /CUMM (4.8-10.8)
--- NOTE | 2017-10-30 10:57 | PN- Housestaff ---
Subjective Follow-up For: cat bite cellulitis Subjective: No acute events overnight. Patient states that she was able to somewhat use her left hand more last night. Believes the swelling and erythema have slightly improved. Review of Systems Constitutional: Reports: see HPI. Objective Last 24 Hrs of Vital Signs/I&O Vital Signs Date Time Temp Pulse Resp B/P B/P Pulse O2 O2 Flow FiO2 Mean Ox Delivery Rate 10/30 1600 Nasal 2.0L Cannula 10/30 1349 98.8 63 20 128/60 92 Nasal 2.0L Cannula 10/30 1344 91 Nasal 2.0L Cannula 10/30 0920 92 Nasal 2.0L Cannula 10/30 0833 62 140/66 10/30 0832 62 140/66 10/30 0800 92 Nasal 2.0L Cannula 10/30 0633 98.2 62 20 140/66 96 Nasal 2.0L Cannula 10/30 0000 Nasal 1.0L Cannula 10/29 2149 98.2 78 24 164/60 92 Nasal 2.0L Cannula Intake & Output 10/30 1600 10/30 0800 10/30 0000 Intake Total 580 350 930 Output Total Balance 580 350 930 Intake, IV 100 250 130 Intake, Oral 480 100 800 Number 0 Bowel Movements Physical Exam General Appearance: Alert, Oriented X3, Cooperative, Mild Distress Skin: left hand cat bite vail and erythema. Tenderness to palpation Cardiovascular: Regular Rate, Normal S1, Normal S2 Lungs: diffuse rhonchi and basilar crackles Abdomen: Normal Bowel Sounds, Soft, No Tenderness Extremities: R hand 2+ radial pulses Current Medications: Current Medications Sig/Romy Start time Last Medication Dose Route Stop Time Status Admin Albuterol Sulfate 3 ML Q4P PRN 10/29 1145 AC 10/30 INH 1340 Amlodipine Besylate 5 MG DAILY 10/29 1000 AC 10/30 PO 0832 Ampicillin Sodium/ 3,000 MG Q6H 10/29 0100 AC 10/30 Sulbactam Sodium IV 1328 Sodium Chloride 100 ML Atenolol 50 MG DAILY 10/28 2152 AC 10/30 PO 08 Atorvastatin Calcium 40 MG QPM 10/28 2199 AC 10/29 PO 202 Budesonide/ 2 PUF BID 10/28 220 AC 10/30 Formoterol Fumarate INH 0834 Citalopram 20 MG DAILY 10/28 2152 AC 10/30 Hydrobromide PO 0833 Clopidogrel Bisulfate 75 MG DAILY 10/29 1000 AC 10/30 PO 0832 Enoxaparin Sodium 40 MG DAILY 10/29 1000 AC 10/30 SC 1035 Furosemide 20 MG ONCE ONE 10/30 1530 DC 10/30 IV 10/30 1531 1653 Gabapentin 900 MG TID 10/28 2200 AC 10/30 PO 1329 Guaifenesin 600 MG BID 10/30 1000 AC 10/30 PO 1327 Insulin Aspart 0 TIDAC 10/29 0800 AC 10/30 SC 1652 Lactobacillus 1 CAP DAILY 10/29 1000 AC 10/30 Acidophilus PO 0832 Loratadine 10 MG DAILY 10/30 0913 AC 10/30 PO 1327 Tramadol HCl 50 MG Q6 10/29 1200 AC 10/30 PO 1652 Last 24 Hrs of Lab/Kendrick Results Last 24 Hrs of Labs/Mics: Laboratory Tests 10/30/17713: CBC w Diff NO MAN DIFF REQ, RBC 3.49 L, MCV 95.9, MCH 32.0 H, MCHC 33.4, RDW 14.2, MPV 8.9, Gran % 68.2, Lymphocytes % 18.7 L, Monocytes % 9.0, Eosinophils % 3.5, Basophils % 0.6, Absolute Granulocytes 6.0, Absolute Lymphocytes 1.6, Absolute Monocytes 0.8 H, Absolute Eosinophils 0.3, Absolute Basophils 0.1 Assessment/Plan Assessment: Ms. Townsend is a 82 yo f with a PMH significant for CAD s/p triple bypass (2009 [place]), left carotid stenosis, DM, HTN, COPD not on home oxygen who presents to the ED after a cat bite with worsening swelling while on oral Augmentin x2 days. Problem list: Left hand cat bite with cellulitis Shortness of breath ?fluid overload Plan: -hand xr: Soft tissue swelling of dorsum of hand. No evidence for osteomyelitis. -reapeat cxr: Worsening congestion. Await for final read. -Start incentive spirometry, fexofenadine that she takes at home, Mucinex for congestion -Given IV Lasix 20 mg for possible fluid overload -cont probiotic for loose stool. Will consider C. difficile if she continues to have loose stool. -seen by plastics. outpatient f.u -f/u blood cx -cellulitis improving on IV Unasyn -TRC/nebs PRN -Accu-Cheks and NovoLog sliding scale -Continue home meds DVT ppx: sc Enoxaparin Code: FULL Problem List: 1. Shortness of breath 2. Cat bite of left hand 3. Cellulitis of left hand Pain Ratin Pain Location: L hand Pain Goal: Pain 4 or less Pain Plan: pain pathway Tomorrow's Labs & Rationales: bep
--- NOTE | 2017-10-30 11:26 | PN- Att Addend ---
Attending Addendum Attending Brief Note Patient seen and examined, was hypoxic this am. O2 sats dropped to 76% on RA per RN. Left hand still seems to be swollen. Complaining of cough all night. Vital Signs Date Time Temp Pulse Resp B/P B/P Pulse O2 O2 Flow FiO2 Mean Ox Delivery Rate 10/30 0920 92 Nasal 2.0L Cannula 10/30 0833 62 140/66 10/30 0832 62 140/66 10/30 0800 92 Nasal 2.0L Cannula 10/30 0633 98.2 62 20 140/66 96 Nasal 2.0L Cannula 10/30 0000 Nasal 1.0L Cannula 10/29 2149 98.2 78 24 164/60 92 Nasal 2.0L Cannula 10/29 1649 92 Nasal 2.0L Cannula 10/29 1600 Nasal 1.0L Cannula 10/29 1529 97.9 64 20 110/60 91 10/29 1150 Room Air 10/29 1150 91 Room Air on exam; aox3, nad. cv; s1,s2, rrr resp; slightly course bs right base abd; soft, nt, bs+ ext; no edema skin; left hand is still slightly erythematous and swollen. Laboratory Tests 10/30 0714 Hematology CBC w Diff NO MAN DIFF REQ WBC (4.8 - 10.8 /CUMM) 8.8 RBC (4.20 - 5.40 /CUMM) 3.49 L Hgb (12.0 - 16.0 G/DL) 11.2 L Hct (37 - 47 %) 33.5 L MCV (81.0 - 99.0 FL) 95.9 MCH (27.0 - 31.0 PG) 32.0 H MCHC (33.0 - 37.0 G/DL) 33.4 RDW (11.5 - 14.5 %) 14.2 Plt Count (130 - 400 /CUMM) 231 MPV (7.4 - 10.4 FL) 8.9 Gran % (42.2 - 75.2 %) 68.2 Lymphocytes % (20.5 - 51.1 %) 18.7 L Monocytes % (1.7 - 9.3 %) 9.0 Eosinophils % (0 - 5 %) 3.5 Basophils % (0.0 - 2.0 %) 0.6 Absolute Granulocytes (1.4 - 6.5 /CUMM) 6.0 Absolute Lymphocytes (1.2 - 3.4 /CUMM) 1.6 Absolute Monocytes (0.10 - 0.60 /CUMM) 0.8 H Absolute Eosinophils (0.0 - 0.7 /CUMM) 0.3 Absolute Basophils (0.0 - 0.2 /CUMM) 0.1 A/P; 82 y/o F with pmh sig for CAD s/p triple bypass (2009 [place]), left carotid stenosis, DM, HTN, COPD not on home oxygen, admitted with left hand cellulitis 2 /2 to cat bite, failing outpatient treatment. This morning has developed hypoxia and also complains of cough. We'll check the chest x-ray. Would encourage incentive spirometry and out of bed to chair with ambulation. We'll check laboratory O2 sat on oxygen. Patient was encouraged to keep her arm elevated been she's not actively using her hand. Encourage use of hand to avoid disuse syndrome. Antitussive medication for cough. If she brings up any sputum, please check the sputum culture. Agree with starting the patient on her antihistamine. Continue the rest of the meds. [facility] nebs would also help. DVT prophylaxis: Lovenox. Dispo: Possbible DC tomorrow if improves.
--- NOTE | 2017-10-30 13:45 | PN- Plastic Surgery ---
Subjective Subjective: Patient states pain is better in the left hand and wrist Review of Systems: Some increasing shortness of breath currently using nasal oxygen, otherwise all systems negative Objective Vital Signs and I&Os Vital Signs Date Time Temp Pulse Resp B/P B/P Pulse O2 O2 Flow FiO2 Mean Ox Delivery Rate 10/30 0920 92 Nasal 2.0L Cannula 10/30 0833 62 140/66 10/30 0832 62 140/66 10/30 0800 92 Nasal 2.0L Cannula 10/30 0633 98.2 62 20 140/66 96 Nasal 2.0L Cannula 10/30 0000 Nasal 1.0L Cannula 10/29 2149 98.2 78 24 164/60 92 Nasal 2.0L Cannula 10/29 1649 92 Nasal 2.0L Cannula 10/29 1600 Nasal 1.0L Cannula 10/29 1529 97.9 64 20 110/60 91 Intake & Output 10/30 1600 10/30 0800 10/30 0000 10/29 1600 10/29 0800 10/29 0000 Intake Total 100 484 8206 600 200 Output Total 500 Balance 981 620 7206 100 200 Intake, IV 250 130 130 300 Intake, Oral 491 889 0203 300 200 Number 1 2 Bowel Movements Output, Urine 500 Patient 155 lb 155 lb Weight Weight Bed scale Bed scale Measurement Method Physical Exam: Erythema remains within the borders of the ink neva. Edema remains dorsally. Range of motion slightly better but still limited. No necrosis or fluctuance. Assessment/Plan Assessment/Plan Cellulitis. Have encouraged patient to actively use the hand to prevent disuse. Have instructed her at the bedside. Would continue intravenous until more improvement seen at the site. Will follow up tomorrow.
[2017-10-30 13:49] VITALS: BP 128/60
--- NOTE | 2017-10-30 15:38 | RADIOLOGY REPORT ---
EXAMINATION: XR CHEST CLINICAL INFORMATION: Question fluid overload. Shortness of breath. COMPARISON: Several prior chest x-rays, most recent of which is dated 10/28/2017. TECHNIQUE: 2 views of the chest were obtained on 3 images. FINDINGS: The patient is status post median sternotomy and CABG surgery. The cardiomediastinal silhouette is enlarged with a left ventricular configuration seen. Calcification of the aortic arch is noted. Lungs bilaterally are symmetrically expanded and demonstrate central vascular congestion and mild streaky perihilar opacities, progressive when compared to prior study and suspicious for subtle pulmonary edema. Lung bases are suboptimally assessed due to overlapping soft tissues of the breasts. There is mild subsegmental atelectasis seen in the lung bases, left greater than right. No significant pleural fluid is noted. There is abnormal sclerotic density and flattening of the left humeral head with narrowing and prominent degenerative changes at the glenohumeral joint. Findings are unchanged from prior study. Extensive degenerative spurring and sclerosis along the anterior margins of the thoracic spine seen. IMPRESSION: 1. Findings are consistent with mild pulmonary edema. Associated areas of mild bibasilar subsegmental atelectasis are seen. 2. Cardiomegaly with left ventricular configuration. 3. Abnormal appearance of the left glenohumeral joint, unchanged. This may be related to avascular necrosis and secondary degenerative change or an inflammatory arthropathy. Close clinical correlation is requested.
[2017-10-30 21:48] VITALS: BP 144/68
[2017-10-30 21:52] VITALS: BP 144/60
[2017-10-31 06:59] VITALS: BP 150/70
--- NOTE | 2017-10-31 07:31 | PN- Housestaff ---
Subjective Follow-up For: cat bite cellulitis Subjective: No acute events overnight. This a.m. the left hand erythema seemed to be slightly improved however later in the morning when she moved her hand from an elevated positioned it became more erythematous. Still feels congested. Review of Systems Constitutional: Reports: see HPI. Objective Last 24 Hrs of Vital Signs/I&O Vital Signs Date Time Temp Pulse Resp B/P B/P Pulse O2 O2 Flow FiO2 Mean Ox Delivery Rate 10/31 1358 92 Nasal 3.0L Cannula 10/31 1342 99.1 66 18 120/80 92 Nasal 2.0L Cannula 10/31 0949 68 150/70 10/31 0949 68 150/70 10/31 0800 Nasal 2.0L Cannula 10/31 0659 99.0 68 20 150/70 91 Nasal 2.0L Cannula 10/31 0000 Nasal 2.0L Cannula 10/30 2152 99.5 73 20 144/60 92 Nasal 2.0L Cannula 10/30 2008 92 Nasal 2.0L Cannula 10/30 1600 Nasal 2.0L Cannula Intake & Output 10/31 1600 10/31 0800 10/31 0000 Intake Total 350 430 Output Total 400 Balance -50 430 Intake, IV 250 150 Intake, Oral 100 280 Output, Urine 400 Physical Exam General Appearance: Alert, Oriented X3, Cooperative, No Acute Distress Skin: left cat bite resolving. erythematous - no improvement from yesterday. tender to palpation Cardiovascular: Regular Rate, Normal S1, Normal S2 Lungs: course breath sounds. Diffuse mild wheezing. Abdomen: Normal Bowel Sounds, Soft, No Tenderness Extremities: 2+ R radial pulse. Assessment/Plan Assessment: Ms. Townsend is a 82 yo f with a PMH significant for CAD s/p triple bypass (2009 [place]), left carotid stenosis, DM, HTN, COPD not on home oxygen who presents to the ED after a cat bite with worsening swelling while on oral Augmentin x2 days. Problem list: Left hand cat bite with cellulitis Shortness of breath ?fluid overload Plan: -hand xr: Soft tissue swelling of dorsum of hand. No evidence for osteomyelitis. -wrist xr: No radiographic evidence of any osteomyelitis or soft tissue abscess. No significant change since prior study dated 10/28/2017 -repeat cxr: mild pulmonary edema. Associated areas of mild bibasilar subsegmental atelectasis -Start incentive spirometry, fexofenadine that she takes at home, Mucinex for congestion -Given IV Lasix 20 mg for possible fluid overload. Will give another 20mg today -cont probiotic for loose stool. Will consider C. difficile if she continues to have loose stool. -seen by plastics. outpatient f.u -f/u blood cx -cellulitis improving on IV Unasyn -TRC/nebs PRN -Accu-Cheks and NovoLog sliding scale -Continue home meds DVT ppx: sc Enoxaparin Code: FULL Problem List: 1. Cellulitis of left hand Pain Ratin Pain Location: L hand Pain Goal: Pain 4 or less Pain Plan: pain pathway Tomorrow's Labs & Rationales: cbc
--- NOTE | 2017-10-31 10:26 | PN- Att Addend ---
Attending Addendum Attending Brief Note Patient seen and examined, not improved much. The left hand is still significantly swollen and erythematous. Chest x-ray yesterday showed some pulmonary edema. Patient did receive IV Lasix. Vital Signs Date Time Temp Pulse Resp B/P B/P Pulse O2 O2 Flow FiO2 Mean Ox Delivery Rate 10/31 0849 68 150/70 10/31 0949 68 150/70 10/31 0659 99.0 68 20 150/70 91 Nasal 2.0L Cannula 10/31 0000 Nasal 2.0L Cannula 10/30 2152 99.5 73 20 144/60 92 Nasal 2.0L Cannula 10/30 2008 92 Nasal 2.0L Cannula 10/30 1600 Nasal 2.0L Cannula 10/30 1349 98.8 63 20 128/60 92 Nasal 2.0L Cannula 10/30 1344 91 Nasal 2.0L Cannula on exam; aox3, nad. cv; s1,s2, rrr resp; clear abd; soft, nt, bs+ ext; no edema skin: left hand is erythematous, swollen. Left wrist also looks somewhat swollen , + ROM but limited. Laboratory Tests 10/31 0745 Chemistry Sodium (137 - 145 mmol/L) 142 Potassium (3.5 - 5.1 mmol/L) 4.2 Chloride (98 - 107 mmol/L) 105 Carbon Dioxide (22 - 30 mmol/L) 26 Anion Gap (5 - 16) 11 BUN (7 - 17 mg/dL) 19 H Creatinine (0.5 - 1.0 mg/dL) 0.9 Estimated GFR (>60 ml/min) > 60 BUN/Creatinine Ratio (7 - 25 %) 21.1 A/P: 82 y/o F with pmh sig for CAD s/p triple bypass (2009 [place]), left carotid stenosis, DM, HTN, COPD not on home oxygen, admitted with left hand cellulitis 2 /2 to cat bite, failing outpatient treatment. Patient still requiring oxygen. As mentioned, chest x-ray showed some pulmonary edema yesterday. Patient did receive IV Lasix. We'll give another dose of 20 minute grams of IV Lasix today. Patient encouraged to ambulate, told patient's RN to try to taper her oxygen. Incentive spirometry. Please consult infectious disease. Please check left wrist x-ray. If there is any fluid, we might need to consult orthopedic for the arthrocentesis. Continue other current meds. DVT px; Lovenox. Dispo: Possbible DC over the weekend if improves. Need to determine if needs home O2. D/W patient's daughter at bedside.
--- NOTE | 2017-10-31 13:05 | RADIOLOGY REPORT ---
EXAMINATION: XR WRIST, LEFT CLINICAL INFORMATION: Left hand cellulitis. COMPARISON: Left hand done on 10/28/2017. TECHNIQUE: 4 views of the left wrist. FINDINGS: Old healed fractures of the distal radius and ulnar styloid process is noted. Severe degenerative osteoarthrosis is noted at the 1st carpometacarpal joint. Arterial calcification is seen. Mild soft tissue swelling is noted overlying the dorsum of the visualized hand. IMPRESSION: No radiographic evidence of any osteomyelitis or soft tissue abscess formation identified. No significant change since prior study dated 10/28/2017.
[2017-10-31 13:42] VITALS: BP 120/80
[2017-10-31] MEDS ORDERED: PROBIOTIC & AC1 EACH PO (14:35)
--- NOTE | 2017-10-31 15:03 | Cons- Infect Disease ---
General Information and HPI Consulting Request Date of Consult: 10/31/17 Requested By: Alysha Quiles MD Reason for Consult: Cellulitis of the left hand status post cat bite Source of Information: patient, family History of Present Illness: This is an 82-year-old woman with a history of diabetes, coronary artery disease , status post CABG, hypertension and COPD, status post a cat bite to the dorsum of her left hand 3 days prior to admission, seen in a walk-in clinic one day prior to admission because of pain, erythema and edema and begun on Augmentin, admitted on October 28 after presenting to the emergency room with increasing inflammation over the dorsum of the left hand with no fevers or chills. On admission she was afebrile. Laboratory data revealed a white blood cell count of 12,000, BUN/creatinine 21 and 0.8, with normal liver enzymes. X-ray of the left hand reveals soft tissue swelling with no foreign body or air in the soft tissue. Chest x-ray was negative. She was begun on Unasyn and evaluated by Plastic surgery. She has remained afebrile and white blood cell count has decreased but she has had persistent inflammation over the dorsum of the hand with no subjective improvement. She has developed a cough with a chest x-ray on October 30 suggesting pulmonary edema and she was given a dose of Lasix. She also notes a new discomfort in the right ankle today. Allergies/Medications Allergies: Coded Allergies: lisinopril (Severe, THROAT AND TONGUE SWELLING 03/13/17) Home Med List: Albuterol Sulfate (Proair Hfa) 90 MCG HFA.AER.AD 2 PUF INH Q6-PRN PRN SHORTNESS OF BREATH (Reported) Amlodipine Besylate 5 MG TABLET 1 TAB PO DAILY HEART (Reported) Atenolol 50 MG TABLET 1 TAB PO DAILY HEART (Reported) Atorvastatin Calcium 10 MG TABLET 4 TAB PO QPM CHOLESTEROL (Reported) Citalopram Hydrobromide (Citalopram HBr) 20 MG TABLET 1 TAB PO DAILY MENTAL HEALTH (Reported) Clopidogrel Bisulfate (Clopidogrel) 75 MG TABLET 1 TAB PO DAILY BLOOD THINNER (Reported) Fluticasone Propionate/Salme (Advair Hfa 115-21 Mcg Inhaler) 115 MCG-21 MCG/ ACTUATION HFA.AER.AD 2 PUFF PO BID BREATHING PROBLEMS (Reported) Gabapentin 300 MG CAPSULE 3 CAP PO TID UNKNOWN (Reported) Lactobac Cmb #3/Fos/Pantethine (Probiotic & Acidophilus Cap) 300MM-250 CAPSULE 1 CAP PO DAILY GI HEALTH Metformin HCl 500 MG TABLET 1 TAB PO Q48 DIABETES (Reported) Past History Travel History Traveled to [place] past 21 day No Medical History Blood Transfusion Hx: No Neurological: NONE EENT: NONE Cardiovascular: hypertension Respiratory: COPD Gastrointestinal: NONE Hepatic: NONE Renal: NONE Musculoskeletal: NONE Psychiatric: NONE Endocrine: diabetes Blood Disorders: NONE Cancer(s): NONE GEODETIC COMPUTATOR/Reproductive: NONE History of MRSA: No History of VRE: No History of CDIFF: No Isolation History: Standard Surgical History Surgical History: non-contributory Psychosocial History Where Do You Live? Home Smoking Status: Former Smoker ETOH Use: denies use Illicit Drug Use: denies illicit drug use Review of Systems Review of Systems All Other Systems: Reviewed and Negative Exam & Diagnostic Data Last 24 Hrs of Vital Signs/I&O Vital Signs Date Time Temp Pulse Resp B/P B/P Pulse O2 O2 Flow FiO2 Mean Ox Delivery Rate 10/31 1358 92 Nasal 3.0L Cannula 10/31 1342 99.1 66 18 120/80 92 Nasal 2.0L Cannula 10/31 0949 68 150/70 10/31 0949 68 150/70 10/31 0800 Nasal 2.0L Cannula 10/31 0659 99.0 68 20 150/70 91 Nasal 2.0L Cannula 10/31 0000 Nasal 2.0L Cannula 10/30 2152 99.5 73 20 144/60 92 Nasal 2.0L Cannula 10/30 2009 92 Nasal 2.0L Cannula 10/30 1600 Nasal 2.0L Cannula Intake & Output 10/31 1600 10/31 0800 10/31 0000 Intake Total 600 350 430 Output Total 400 Balance 600 -50 430 Intake, IV 120 250 150 Intake, Oral 480 100 280 Output, Urine 400 Physical Exam Other Physical Findings: Afebrile. She is awake and alert in no acute distress. Skin reveals no rash. HEENT negative. Neck is supple with no adenopathy. Lungs scattered rhonchi bilaterally. Heart regular rhythm with no murmur. Abdomen is soft, nontender with positive bowel sounds. Back no CVA tenderness. Extremities erythema, edema and exquisite tenderness over the dorsum of the left hand, with mild ecchymosis, with swelling of the fingers preventing her from making a fist; no inflammation of the right ankle. Neuro is without focality. Last 24 Hours of Lab Results: Laboratory Tests 10/31 0745 Chemistry Sodium (137 - 145 mmol/L) 142 Potassium (3.5 - 5.1 mmol/L) 4.2 Chloride (98 - 107 mmol/L) 105 Carbon Dioxide (22 - 30 mmol/L) 26 Anion Gap (5 - 16) 11 BUN (7 - 17 mg/dL) 19 H Creatinine (0.5 - 1.0 mg/dL) 0.9 Estimated GFR (>60 ml/min) > 60 BUN/Creatinine Ratio (7 - 25 %) 21.1 Last 24 Hours of Kendrick Results: Blood cultures 2 October 28 negative Diagnostic Data Recent Imaging Findings: X-ray of the left hand October 28 reveals soft tissue swelling with no foreign body or air in the soft tissue. Chest x-ray October 28 negative. Chest x-ray October 30 reveals mild pulmonary edema with mild bibasilar subsegmental atelectasis X-ray of the left wrist October 31 no significant change from the previous x-ray, with mild soft tissue swelling over the dorsum of the hand Assessment/Plan Assessment/Plan Impression: This is an 82-year-old woman with a history of diabetes, coronary artery disease , status post CABG, hypertension and COPD, status post a cat bite to the dorsum of her left hand 3 days prior to admission, begun on Augmentin at a walk-in clinic one day prior to admission because of pain, erythema, and edema over the dorsum of the hand, admitted on October 28 with increasing inflammation of the left hand with no fevers or chills, found to be afebrile with a mild leukocytosis, treated over the past 3 days with Unasyn with little subjective improvement but with temperatures remaining normal and white blood cell count decreased. She appears to have persistent inflammation over the dorsum of the left hand and am concerned that she may require drainage for resolution. The rapid onset of infection suggests infection with Pasteurella, which can invade the synovium and cause a tenosynovitis, which might require drainage. She has been treated with Unasyn, which should provide adequate coverage for Pasteurella, and this can be continued pending Plastic surgery reevaluation. Her cough and mild dyspnea may be secondary to pulmonary edema, suggested on the chest x-ray, and she has been treated with Lasix. Suggestion: 1. Await Plastic surgery reevaluation 2. Elevate left hand (perhaps with a sling attached to an IV pole) pending above 3. Continue Unasyn pending above Dr. Simth will be covering over the weekend Consult Acknowledgment - Thank you for your consult request.
--- NOTE | 2017-10-31 18:17 | PN- Plastic Surgery ---
Subjective Subjective: Some shortness of breath after self dc'ing nasal cannula O2. Objective Vital Signs and I&Os Vital Signs Date Time Temp Pulse Resp B/P B/P Pulse O2 O2 Flow FiO2 Mean Ox Delivery Rate 10/31 1358 92 Nasal 3.0L Cannula 10/31 1342 99.1 66 18 120/80 92 Nasal 2.0L Cannula 10/31 0949 68 150/70 10/31 0949 68 150/70 10/31 0800 Nasal 2.0L Cannula 10/31 0659 99.0 68 20 150/70 91 Nasal 2.0L Cannula 10/31 0000 Nasal 2.0L Cannula 10/30 2152 99.5 73 20 144/60 92 Nasal 2.0L Cannula 10/30 2009 92 Nasal 2.0L Cannula Intake & Output 10/31 1600 10/31 0800 10/31 0000 10/30 1600 10/30 0800 10/30 0000 Intake Total 600 350 430 580 350 930 Output Total 400 Balance 600 -50 430 580 350 930 Intake, IV 120 250 150 100 250 130 Intake, Oral 480 100 280 480 100 800 Number 0 Bowel Movements Output, Urine 400 Physical Exam: Left hand appears similar to yesterday's exam. She has mild edema dorsally with erythema that does not extend beyond the originally ink marked borders. There is no crepitance there is no drainage from the puncture sites. The puncture sites are without necrosis, she has pain-free passive extension of the digits. Soft tissue swelling prevents full fist. Assessment/Plan Assessment/Plan Cellulitis secondary to It. Expectations would have been more rapid resolution but there is no evidence on clinical exam to suggest a deeper collection requiring drainage. Without active drainage or fluctuance intervention surgically not currently indicated. Please contact sterile supply for a Kannan pillow i.e. yellow foam pillow to help support the hand.
[2017-10-31 20:10] VITALS: BP 168/60
--- NOTE | 2017-10-31 22:16 | Event Note ---
Event Note Event Note: S: Paged stating patient is short of breath with 89% O2 sat on 3L B: Patient is an 82 y/o female with PMH of CAD s/p triple bypass (2009), left carotid stenosis, DM, HTN, COPD not on home oxygen who presents to the ED after a cat bite with worsening swelling while on oral Augmentin x2 days currently being treated for cellulitis with IV Unasyn. Patient had CXR showing vascular congestion and was given lasix 20mg IV today for shorness of breath and concern of fluid overloaded. Patient was evaluated at bedside. Was resting comfortably in no acute respiratory distress. Patient received a respiratory treatment around 7PM. Patient is currently saturating at 89% on 3L. Patient's lung exam: +bibasilar crackles and rhonchi. No JVD, no lower extremity edema. Remainder of exam benign. Patient's hand is reportedly improving. Patient is ~3L fluid balance positive. A/P: Patient's shortness of breath likely secondary to fluid overload. - will continue O2 supplement - will check ABG - will give another dose of lasix - continue TRC/DuoNeb
[2017-10-31 22:27] VITALS: BP 140/60
[2017-11-01 06:19] VITALS: BP 104/60
--- NOTE | 2017-11-01 08:54 | PN- Housestaff ---
See Addendum Subjective Follow-up For: cat bite cellulitis Subjective: No acute events overnight. Now complains of R ankle swelling and pain. States difficulty weightbearing with right foot. Review of Systems Constitutional: Reports: see HPI. Objective Last 24 Hrs of Vital Signs/I&O Vital Signs Date Time Temp Pulse Resp B/P B/P Pulse O2 O2 Flow FiO2 Mean Ox Delivery Rate 11/01 1337 99.0 80 18 110/82 92 Nasal 3.0L Cannula 11/01 1025 99.0 64 20 114/64 11/01 1023 99.0 64 20 114/64 11/01 0840 93 Nasal 3.0L Cannula 11/01 0800 Nasal 3.0L Cannula 11/01 0619 99.0 56 20 104/60 92 Nasal 2.0L Cannula 11/01 0000 91 Nasal 3.0L Cannula 10/31 2227 99.0 75 20 140/60 91 10/31 2009 100.2 75 24 168/60 89 Nasal 3.0L Cannula 10/31 1920 94 Nasal 3.0L Cannula 10/31 1600 Nasal 3.0L Cannula Intake & Output 11/01 1600 11/01 0800 11/01 0000 Intake Total 800 510 510 Output Total 600 200 700 Balance 200 310 -190 Intake, IV 150 150 Intake, Oral 800 360 360 Output, Urine 600 200 700 Patient 155 lb Weight Physical Exam General Appearance: Alert, Oriented X3, Cooperative Skin: left hand cellulitis still erythematous and swollen Cardiovascular: Regular Rate, Normal S1, Normal S2 Lungs: Clear to Auscultation, Normal Air Movement Abdomen: Normal Bowel Sounds, Soft, No Tenderness Extremities: right ankle swollen tender to palpation Vascular: 2+ radial pulses Assessment/Plan Assessment: Ms. Townsend is a 82 yo f with a PMH significant for CAD s/p triple bypass (2009 [place]), left carotid stenosis, DM, HTN, COPD not on home oxygen who presents to the ED after a cat bite with worsening swelling while on oral Augmentin x2 days. Problem list: Left hand cat bite with cellulitis Shortness of breath ?fluid overload History of gout Plan: -We'll start naproxen 500 mg twice a day given acute onset of ankle swelling and pain and history of gout but uric acid normal -ankle XR: 1. Mild osteoarthrosis.2. Nonspecific mild periarticular soft tissue swelling.3. Arterial calcifications.4. Large posterior superior and small posterior plantar calcaneal spurs. -hand xr: Soft tissue swelling of dorsum of hand. No evidence for osteomyelitis. -wrist xr: No radiographic evidence of any osteomyelitis or soft tissue abscess. No significant change since prior study dated 10/28/2017 -repeat cxr: mild pulmonary edema. Associated areas of mild bibasilar subsegmental atelectasis -Start incentive spirometry, fexofenadine that she takes at home, Mucinex for congestion -Given IV Lasix 20 mg x2 -cont probiotic for loose stool. Will consider C. difficile if she continues to have loose stool. -seen by plastics. outpatient f.u -f/u blood cx -cellulitis improving on IV Unasyn -TRC/nebs PRN -Accu-Cheks and NovoLog sliding scale -Continue home meds DVT ppx: sc Enoxaparin Code: FULL Problem List: 1. Shortness of breath 2. Cat bite of left hand 3. Right ankle pain Pain Ratin Pain Location: R ankle and knee Pain Goal: Pain 4 or less Pain Plan: pain pathway Tomorrow's Labs & Rationales: cbc bep
[2017-11-01 09:18] LABS: ABSOLUTE BASOPHIL COUNT 0 /CUMM (0.0-0.2); ABSOLUTE EOSINOPHIL COUNT 0.3 /CUMM (0.0-0.7); ABSOLUTE GRANULOCYTE CT 7.8 /CUMM (1.4-6.5); ABSOLUTE LYMPH COUNT 1.1 /CUMM (1.2-3.4); ABSOLUTE MONOCYTE COUNT 0.8 /CUMM (0.10-0.60); BASOPHIL % 0.5 % (0.0-2.0); EOSINOPHIL % 3.1 % (0-5); GRANULOCYTE % 77.9 % (42.2-75.2); HEMATOCRIT 36.4 % (37-47); MEAN CORPUSCULAR HGB 31.6 PG (27.0-31.0); MEAN CORPUSCULAR HGB CONC 33.3 G/DL (33.0-37.0); MEAN CORPUSCULAR VOLUME 94.8 FL (81.0-99.0); MEAN PLATELET VOLUME 8.9 FL (7.4-10.4); PLATELET COUNT 264 /CUMM (130-400); RBC DISTRIBUTION WIDTH 13.8 % (11.5-14.5); RED BLOOD CELL CT 3.84 /CUMM (4.20-5.40); WHITE BLOOD CELL COUNT 10.1 /CUMM (4.8-10.8)
[2017-11-01 13:37] VITALS: BP 110/82
--- NOTE | 2017-11-01 15:45 | RADIOLOGY REPORT ---
EXAMINATION: XR ANKLE, RIGHT CLINICAL INFORMATION: 82-year-old female presented with new onset right ankle swelling. COMPARISON: None TECHNIQUE: AP, lateral, and mortise views of the right ankle. FINDINGS: The bony alignment is intact. The cortices are intact. Mild osteoarthrosis is noted in the form of mild osteophyte formation along the articular surface. The joint space is relatively well maintained. Nonspecific periarticular soft tissue swelling is present. Arterial calcifications are present. Incidental note is made of large posterior superior and small posterior plantar calcaneal spurs. No radiographic evidence of superimposed acute fracture or subluxation or dislocation is seen. IMPRESSION: 1. Mild osteoarthrosis. 2. Nonspecific mild periarticular soft tissue swelling. 3. Arterial calcifications. 4. Large posterior superior and small posterior plantar calcaneal spurs.
--- NOTE | 2017-11-01 20:45 | RADIOLOGY REPORT ---
EXAMINATION: XR PORTABLE CHEST CLINICAL INFORMATION: Fluid overload, shortness of breath COMPARISON: Prior chest x-rays, most recent on 10/30/2017 TECHNIQUE: Portable frontal view of the chest was obtained. FINDINGS: Stable cardiomediastinal silhouette with mild cardiomegaly. Prior CABG. The median sternotomy wires are intact. Pulmonary venous congestion and mild interstitial edema at the lung bases are fairly similar to 10/30/2017 x-ray. There is diffuse bilateral increased pulmonary bronchovascular markings, fairly similar to 05/01/2016 exam, chronic finding. Blunting of the left lateral costophrenic angle noted which could represent a small left-sided pleural effusion. No pneumothorax. Chronic deformity of the left humeral head noted. IMPRESSION: Mild cardiomegaly, pulmonary venous congestion and mild interstitial edema at the lung bases, fairly similar to 10/30/2017 chest x-ray. A small left-sided pleural effusion.
[2017-11-01 22:24] VITALS: BP 120/80
[2017-11-02 05:59] VITALS: BP 122/72
[2017-11-02 08:36] LABS: ABSOLUTE BASOPHIL COUNT 0 /CUMM (0.0-0.2); ABSOLUTE EOSINOPHIL COUNT 0.4 /CUMM (0.0-0.7); ABSOLUTE GRANULOCYTE CT 4.6 /CUMM (1.4-6.5); ABSOLUTE LYMPH COUNT 1.5 /CUMM (1.2-3.4); ABSOLUTE MONOCYTE COUNT 0.7 /CUMM (0.10-0.60); BASOPHIL % 0.5 % (0.0-2.0); EOSINOPHIL % 5.2 % (0-5); GRANULOCYTE % 63.3 % (42.2-75.2); HEMATOCRIT 35.2 % (37-47); MEAN CORPUSCULAR HGB 31.6 PG (27.0-31.0); MEAN CORPUSCULAR HGB CONC 33.3 G/DL (33.0-37.0); MEAN CORPUSCULAR VOLUME 95.1 FL (81.0-99.0); MEAN PLATELET VOLUME 8.6 FL (7.4-10.4); PLATELET COUNT 277 /CUMM (130-400); RBC DISTRIBUTION WIDTH 13.7 % (11.5-14.5); WHITE BLOOD CELL COUNT 7.3 /CUMM (4.8-10.8)
--- NOTE | 2017-11-02 10:34 | PN- Housestaff ---
Venkatesh NOBLE,[facility] 11/02/17 1034: Subjective Follow-up For: Cat bite cellulitis R ankle pain ?gout Subjective: CXR last night revealed pulm congestion, IV lasix given. R foot ankle still hurting. States L hand erythema mildly improved. Still having SOB. Review of Systems Constitutional: Reports: see HPI. Objective Last 24 Hrs of Vital Signs/I&O Vital Signs Date Time Temp Pulse Resp B/P B/P Pulse O2 O2 Flow FiO2 Mean Ox Delivery Rate 11/02 1337 98.5 71 18 120/80 91 Nasal 5.0L Cannula 11/02 0925 93 Nasal 5.0L Cannula 11/02 0800 92 Nasal 7.0L Cannula 11/02 0749 98.9 66 20 122/72 11/02 0747 98.9 66 20 122/72 11/02 0559 98.9 57 20 122/72 93 Nasal 7.0L Cannula 11/02 0145 92 Nasal 7.0L Cannula 11/02 0000 92 Nasal 7.0L Cannula 11/01 2224 99.4 966 20 120/80 91 Intake & Output 11/02 1600 11/02 0800 11/02 0000 Intake Total 800 540 610 Output Total 1500 200 400 Balance -700 340 210 Intake, IV 300 130 Intake, Oral 800 240 480 Output, Urine 1500 200 400 Physical Exam General Appearance: Alert, Oriented X3, Cooperative Cardiovascular: Regular Rate, Normal S1, Normal S2 Lungs: basilar crackles and rhonchi Abdomen: Normal Bowel Sounds, Soft, No Tenderness Extremities: 2+ radial pulses. R ankle tender to palpation. L hand erythema improved. Assessment/Plan Assessment: 82 yo f with a PMH significant for CAD s/p triple bypass (2009 [place]), left carotid stenosis, DM, HTN, COPD not on home oxygen who presents to the ED after a cat bite with worsening swelling while on oral Augmentin x2 days. Problem list: Left hand cat bite with cellulitis Shortness of breath ?fluid overload History of gout Plan: -Cr slightly rising to 1.1. will hold naproxen. -cxr revaeled vascular congestion. iv lasix given. will give 20mg more lasix today -ankle XR: 1. Mild osteoarthrosis.2. Nonspecific mild periarticular soft tissue swelling.3. Arterial calcifications.4. Large posterior superior and small posterior plantar calcaneal spurs. -hand xr: Soft tissue swelling of dorsum of hand. No evidence for osteomyelitis. -wrist xr: No radiographic evidence of any osteomyelitis or soft tissue abscess. No significant change since prior study dated 10/28/2017 -repeat cxr: mild pulmonary edema. Associated areas of mild bibasilar subsegmental atelectasis -Start incentive spirometry, fexofenadine that she takes at home, Mucinex for congestion -Given IV Lasix 20 mg x2 -cont probiotic for loose stool. Will consider C. difficile if she continues to have loose stool. -seen by plastics. outpatient f.u -f/u blood cx -cellulitis improving on IV Unasyn -TRC/nebs PRN -Accu-Cheks and NovoLog sliding scale -Continue home meds DVT ppx: sc Enoxaparin Code: FULL Problem List: 1. Right ankle pain 2. Cellulitis of left hand 3. Pulmonary congestion Pain Ratin Pain Location: ankle, hand Pain Goal: Pain 4 or less Pain Plan: pain pathway Tomorrow's Labs & Rationales: Jignesh Collado MD 11/02/17 1359: Attending MD Review Statement Attending Statement Attending MD Statement: examined this patient, discuss w/resident/PA/CATERING COOK, agreed w/resident/PA/CATERING COOK, reviewed EMR data (avail), reviewed images, amended to note Attending Assessment/Plan: The patient was seen and discussed with house staff. Slow improvement in left hand erythema (becomes worse later in day with dependence of arm). Concern regarding hypoxemia and increased oxygen needs. CXR c/w interstitial edema. Also has COPD. Would increase frequency of nebs and give additional IV Lasix. Incentive spirometry. Follow I/O's. Substitute tylenol for Naproxen.
[2017-11-02 13:37] VITALS: BP 120/80
[2017-11-02 22:17] VITALS: BP 140/70
[2017-11-03 06:22] VITALS: BP 124/66
--- NOTE | 2017-11-03 09:56 | PN- Housestaff ---
Subjective Follow-up For: Cat bite cellulitis R ankle pain ?gout Pleural effusion/SOB Subjective: No acute events overnight. States lasix slightly helped with SOB. Cont to be on 6L oxygen. Does not use it baseline. Review of Systems Constitutional: Reports: see HPI. Objective Last 24 Hrs of Vital Signs/I&O Vital Signs Date Time Temp Pulse Resp B/P B/P Pulse O2 O2 Flow FiO2 Mean Ox Delivery Rate 11/03 1409 98.5 61 20 140/70 92 Nasal 6.0L Cannula 11/03 0851 93 Nasal 6.0L Cannula 11/03 0848 64 100/70 11/03 0848 64 100/70 11/03 0800 Nasal 6.0L Cannula 11/03 0622 98.1 55 18 124/66 93 Nasal Cannula 11/03 0000 Nasal 6.0L Cannula 11/02 2217 98.2 60 20 140/70 93 11/02 1726 91 Nasal 5.0L Cannula Intake & Output 11/03 1600 11/03 0800 11/03 0000 Intake Total 650 350 100 Output Total Balance 650 350 100 Intake, IV 250 Intake, Oral 650 100 100 Number 0 Bowel Movements Output, Dialysate Physical Exam General Appearance: Alert, Oriented X3, Cooperative, No Acute Distress Cardiovascular: Regular Rate, Normal S1, Normal S2 Lungs: basilar crackles + rhonchi. coarse breath sounds Abdomen: Normal Bowel Sounds, Soft, No Tenderness Vascular: 2+ radial pulses Current Medications: Current Medications Sig/Romy Start time Last Medication Dose Route Stop Time Status Admin Acetaminophen 650 MG Q6-PRN PRN 11/02 1100 AC PO Albuterol Sulfate 3 ML BID 10/31 2100 AC 11/03 INH 0822 Amlodipine Besylate 5 MG DAILY 10/29 1000 AC 11/03 PO 0848 Amoxicillin/ 875 MG Q12 11/03 2100 AC Clavulanate Potassium PO Ampicillin Sodium/ 3,000 MG Q6H 11/02 0600 DC 11/03 Sulbactam Sodium IV 1253 Sodium Chloride 100 ML Atenolol 50 MG DAILY 10/28 2152 AC 11/03 PO 0848 Atorvastatin Calcium 40 MG QPM 10/28 2200 AC 11/02 PO 2142 Budesonide/ 2 PUF BID 10/28 220 AC 11/03 Formoterol Fumarate INH 0847 Citalopram 20 MG DAILY 10/28 2152 AC 11/03 Hydrobromide PO 0848 Clopidogrel Bisulfate 75 MG DAILY 10/29 1000 AC 11/03 PO 0848 Enoxaparin Sodium 40 MG DAILY 10/29 1000 AC 11/03 SC 0847 Gabapentin 900 MG TID 10/28 2200 AC 11/03 PO 1325 Guaifenesin 600 MG BID 10/30 1000 AC 11/03 PO 0848 Insulin Aspart 0 TIDAC 10/29 0800 AC 10/30 SC 1652 Lactobacillus 1 CAP DAILY 10/29 1000 AC 11/03 Acidophilus PO 1027 Loratadine 10 MG DAILY 10/30 0913 AC 11/03 PO 0848 Tramadol HCl 50 MG Q6 10/29 1200 AC 11/03 PO 1158 Last 24 Hrs of Lab/Kendrick Results Last 24 Hrs of Labs/Mics: Laboratory Tests 11/03/17 0724: Anion Gap 12, Estimated GFR > 60, BUN/Creatinine Ratio 26.3 H, Troponin I < 0.01 Assessment/Plan Assessment: 82 yo f with a PMH significant for CAD s/p triple bypass (2009 [place]), left carotid stenosis, DM, HTN, COPD not on home oxygen who presents to the ED after a cat bite with worsening swelling while on oral Augmentin x2 days. Problem list: Left hand cat bite with cellulitis Shortness of breath ?fluid overload History of gout Plan: -switch from unasyn to po augmentin -f/u echo -F/U cardiology consult -CTA negative for PE. ?Pna - will watch off abx as no fever or leukocytosis -Cr slightly rising to 1.1. will hold naproxen. cont tylenol for pain -SOB 2/2 to fluid congestion. IV lasix 20 x4 given thus far. -ankle XR: 1. Mild osteoarthrosis.2. Nonspecific mild periarticular soft tissue swelling.3. Arterial calcifications.4. Large posterior superior and small posterior plantar calcaneal spurs. -hand xr: Soft tissue swelling of dorsum of hand. No evidence for osteomyelitis. -wrist xr: No radiographic evidence of any osteomyelitis or soft tissue abscess. No significant change since prior study dated 10/28/2017 -repeat cxr: mild pulmonary edema. Associated areas of mild bibasilar subsegmental atelectasis -Start incentive spirometry, fexofenadine that she takes at home, Mucinex for congestion -cont probiotic for loose stool. Will consider C. difficile if she continues to have loose stool. -seen by plastics. outpatient f.u -f/u blood cx -TRC/nebs PRN -Accu-Cheks and NovoLog sliding scale -Continue home meds DVT ppx: sc Enoxaparin Code: FULL Problem List: 1. Pulmonary congestion 2. Shortness of breath 3. Cat bite of left hand 4. Cellulitis of left hand Pain Ratin Pain Location: hand, ankle Pain Goal: Pain 4 or less Pain Plan: pathway Tomorrow's Labs & Rationales: none
--- NOTE | 2017-11-03 10:49 | PN- Att Addend ---
Attending Addendum Attending Brief Note Patient seen and examined, left hand is better but breathing has not improved. Patient not requiring significant amount of oxygen. Chest x-ray continued to show some interstitial edema. Patient has required IV Lasix. Vital Signs Date Time Temp Pulse Resp B/P B/P Pulse O2 O2 Flow FiO2 Mean Ox Delivery Rate 11/03 0851 93 Nasal 6.0L Cannula 11/03 0848 64 100/70 11/03 0848 64 100/70 11/03 0800 Nasal 6.0L Cannula 11/03 0622 98.1 55 18 124/66 93 Nasal Cannula 11/03 0000 Nasal 6.0L Cannula 11/02 2217 98.2 60 20 140/70 93 11/02 1726 91 Nasal 5.0L Cannula 11/02 1337 98.5 71 18 120/80 91 Nasal 5.0L Cannula on exam; aox3, nad. cv; s1,s2, rrr resp; + rhonchi. abd; soft, nt, bs+ ext; no edema skin: left hand is less swollen and less erthematous. Laboratory Tests 11/03 07 Chemistry Sodium (137 - 145 mmol/L) 142 Potassium (3.5 - 5.1 mmol/L) 4.2 Chloride (98 - 107 mmol/L) 101 Carbon Dioxide (22 - 30 mmol/L) 30 Anion Gap (5 - 16) 12 BUN (7 - 17 mg/dL) 21 H Creatinine (0.5 - 1.0 mg/dL) 0.8 Estimated GFR (>60 ml/min) > 60 BUN/Creatinine Ratio (7 - 25 %) 26.3 H Troponin I (< 0.11 ng/ml) < 0.01 A/P; 82 y/o F with pmh sig for CAD s/p triple bypass (2009 [place]), left carotid stenosis, DM, HTN, COPD not on home oxygen, admitted with left hand cellulitis 2 /2 to cat bite, failing outpatient treatment. Cellulitis is better. Plastic surgery did not recommend any intervention. Patient remains on IV Unasyn. We' ll discuss with infectious disease about switching her to oral. Breathing is worse. Patient reporting more oxygen. Agree with getting CT chest to rule out pulmonary embolus him as well as echocardiogram. Agree with getting cardiology consult. If breathing status remains worse than we will have to involve pulmonology also. Continue TRC nebs. Continue the rest of management. Patient on Lovenox for DVT prophylaxis. Encourage ambulation and incentive spirometery.
--- NOTE | 2017-11-03 12:21 | PN- Infect Dx ---
Subjective Subjective: Afebrile. She notes improvement in her left hand inflammation but has developed increased shortness of breath, with a mild, nonproductive cough. Objective Last 24 Hrs of Vital Signs/I&O Vital Signs Date Time Temp Pulse Resp B/P B/P Pulse O2 O2 Flow FiO2 Mean Ox Delivery Rate 11/03 0851 93 Nasal 6.0L Cannula 11/03 0848 64 100/70 11/03 0848 64 100/70 11/03 0800 Nasal 6.0L Cannula 11/03 0622 98.1 55 18 124/66 93 Nasal Cannula 11/03 0000 Nasal 6.0L Cannula 11/02 2217 98.2 60 20 140/70 93 11/02 1726 91 Nasal 5.0L Cannula 11/02 1337 98.5 71 18 120/80 91 Nasal 5.0L Cannula Intake & Output 11/03 1600 11/03 0800 11/03 0000 Intake Total 350 100 Output Total Balance 350 100 Intake, IV 250 Intake, Oral 100 100 Number 0 Bowel Movements Physical Exam Other Physical Findings: She appears comfortable in no acute distress Lungs bilateral rhonchi and scattered crackles Heart regular rhythm with no murmur Extremities no cyanosis, clubbing or edema; decreased erythema, edema and tenderness over the dorsum of the left hand Results Last 24 Hours of Lab Results: Laboratory Tests 11/03 07 Chemistry Sodium (137 - 145 mmol/L) 142 Potassium (3.5 - 5.1 mmol/L) 4.2 Chloride (98 - 107 mmol/L) 101 Carbon Dioxide (22 - 30 mmol/L) 30 Anion Gap (5 - 16) 12 BUN (7 - 17 mg/dL) 21 H Creatinine (0.5 - 1.0 mg/dL) 0.8 Estimated GFR (>60 ml/min) > 60 BUN/Creatinine Ratio (7 - 25 %) 26.3 H Troponin I (< 0.11 ng/ml) < 0.01 Last 24 Hours of Kendrick Results: No recent cultures Recent Imaging Studies: Chest x-ray November 01 reveals mild cardiomegaly, pulmonary venous congestion and mild interstitial edema Assessment/Plan ID Impression: Stable, with temperatures and white blood cell count normal, on Unasyn, Day 6 of treatment for a cellulitis of the dorsum of the left hand secondary to a cat bite, with marked improvement in the left hand inflammation over the last several days. Her hospital course has been complicated by worsening respiratory distress, felt to be secondary to fluid overload, for which she is being diuresed, or an exacerbation of COPD. Suggestion: 1. Further management of her respiratory distress per Medicine 2. Discontinue Unasyn 3. Begin Augmentin 875 mg po every 12 hours
--- NOTE | 2017-11-03 13:23 | CT SCAN REPORT ---
EXAMINATION: CT ANGIOGRAM OF THE CHEST WITH AND WITHOUT CONTRAST (CT PULMONARY ANGIOGRAM FOR PE) CLINICAL INFORMATION: 82-year-old female with persistent hypoxemia requiring high amounts of oxygen therapy. COMPARISON: Chest x-ray on 10/30/2017. TECHNIQUE: Prior to contrast administration, noncontrast localization images were obtained. Subsequently, multidetector volumetric imaging was performed from the thoracic inlet to below the diaphragms following the administration of 95 mL Optiray 320 intravenous contrast. No contrast reaction reported. Sagittal, coronal, and MIP oblique sagittal reformatted images were obtained on the CT workstation, uploaded to PACS, and reviewed. Total exam dose-length product 424 mGy-cm. FINDINGS: UNDERLINER: The patient is postop open heart surgery with sternotomy wires intact. QUALITY OF STUDY/CONTRAST BOLUS: Excellent. PULMONARY ARTERIES: No central or segmental pulmonary emboli. THORACIC AORTA: No aneurysm or dissection. LUNG: There is a segmental area of consolidation involving the posterior basal segment of the right lower lobe. Patient has centrilobular emphysema in the upper lobes. PLEURA: No pleural effusion or pneumothorax. MEDIASTINUM: Normal heart size. No evidence of septal bowing or right heart strain. No pericardial effusion. There are numerous mediastinal lymph nodes located in the pretracheal space, the AP window, and the subcarinal space. Also, both ruth shows the presence of a number of lymph nodes. One of the precarinal lymph node measures 1.3 cm in short axis. There is no retrocrural adenopathy. CHEST WALL/AXILLA: Small lymph nodes are seen in the left axilla. None of these are dominant. OSSEOUS STRUCTURES: Multilevel degenerative disc disease with large bridging osteophytes. UPPER ABDOMEN: Unremarkable. No reflux of contrast into the hepatic veins to suggest elevated right heart pressures. IMPRESSION: 1. No evidence of pulmonary embolism. 2. Left lower lobe segmental consolidation representing pneumonia and/or atelectasis. Mild centrilobular emphysema. 3. A number of small lymph nodes located in the mediastinum and both hilar regions, etiology unknown. VTE: negative
[2017-11-03 14:09] VITALS: BP 140/70
--- NOTE | 2017-11-03 17:25 | PN- Plastic Surgery ---
Subjective Subjective: NOTHING NEW Review of Systems: ON O2 Objective Vital Signs and I&Os Vital Signs Date Time Temp Pulse Resp B/P B/P Pulse O2 O2 Flow FiO2 Mean Ox Delivery Rate 11/03 1409 98.5 61 20 140/70 92 Nasal 6.0L Cannula 11/03 0851 93 Nasal 6.0L Cannula 11/03 0848 64 100/70 11/03 0848 64 100/70 11/03 0800 Nasal 6.0L Cannula 11/03 0622 98.1 55 18 124/66 93 Nasal Cannula 11/03 0000 Nasal 6.0L Cannula 11/02 2217 98.2 60 20 140/70 93 11/02 1726 91 Nasal 5.0L Cannula Intake & Output 11/03 1600 11/03 0800 11/03 0000 11/02 1600 11/02 0800 11/02 0000 Intake Total 650 350 100 800 540 610 Output Total 1500 200 400 Balance 650 350 100 -700 340 210 Intake, IV 250 300 130 Intake, Oral 650 100 100 800 240 480 Number 0 Bowel Movements Output, Dialysate Output, Urine 1500 200 400 Physical Exam: LEFT HAND -IMPROVING ROM, LESS EDEMA AND ERYTHEMA Assessment/Plan Assessment/Plan IMPROVING. F/U NEEDED
[2017-11-03 22:19] VITALS: BP 116/70
[2017-11-04 06:00] VITALS: BP 104/60
--- NOTE | 2017-11-04 07:29 | Discharge Summary ---
Visit Information Visit Dates Admission Date: 10/28/17 Discharge Date: 11/07/17 Hospital Course Course Attending Physician: Alysha Quiles MD Primary Care Physician: Hilaria Borrego MD Consulting Request: Consulting Specialty: Pulmonary Disease Consulting Physician: Reason for Consult: COPD exacerbation Hospital Course: Ms. Townsend is 82-year-old woman with past medical history of COPD, diabetes, coronary artery disease status post CABG, left carotid stenosis who came to the ED on 10/28/2017 for worsening left hand swelling after a cat bite. Just prior to admission, she was prescribed Augmentin, which she took 3 doses with minimal relief and continued to have worsening left hand pain, redness and swelling which prompted a visit to the ED. At the time of admission, patient denied any fevers chills or any drainage at the site of cellulitis. She further stated that the cat was domesticated and homebound but not vaccinated. Vitals upon admission. Afebrile, pulse 79, respiratory rate of 18, blood pressure 169/63 and saturations 92% on room air. On examination, the dorsal left hand was swollen, erythematous, warm to touch; range of motion was restricted at carpometacarpal joint, peripheral pulses were intact and perfusion time normal. Chest x-ray revealed time showed no abnormality of the chest. Left hand x-ray showed soft tissue swelling of dorsum of hand with no radiographic evidence of osteomyelitis. Patient was admitted to general medicine floor and treated for followin. Cat bite cellulitis. Patient was started on IV Unasyn, with instructions to keep her head elevated. Patient showed slow signs of improvement while on Unasyn. A plastic surgery consult was obtained and they recommended hand elevation and no surgical intervention. Her cellulitis was thought likely secondary to Pasteurella multilocida. By 11/03/2017, patient showed continued improvement in her hand pain, range of motion, swelling and redness and she was switched to by mouth Augmentin. Patient discharged on by mouth Augmentin to finish a 10 day course for her cat bite cellulitis. 2. Hypoxemia. On 10/30/2017, patient had low oxygen saturations and was becoming short of breath. She did receive fluids in the hospital, and a question for possible pulmonary edema was raised. A chest x-ray obtained confirmed the findings. She was given IV Lasix multiple times. During these times, she remained chest pain-free, with a normal EKG and negative troponins. A CTA was obtained on 11/03/2017 to rule out pulmonary embolus, which again remained negative for any DVT but did show dependent atelectasis and diffuse emphysematous disease. Cardiology evaluation has been requested. Patient may need to decide on home oxygen. Patient was evaluated by physical therapy and they recommended pulmonary rehabilitation for the patient. On 11/04/2017, pulmonary consultation was obtained. Her acute hypoxemia requiring high levels of O2 was thought to be secondary to an exacerbation of COPD along with atelectasis due to inactivity. Following this, she was started on IV Solu-Medrol and then transitioned to oral prednisone taper 40 X2 taper 10mg every 2 days, TRC nebs. Tramadol and robitussin for congestion and pain All her home medications were continued including Atorvastatin, gabapentine, citalopram, Advair & albuterol, Atenolol 50mg daily, Clopidogrel 75mg daily, Amlodipine 5mg daily, Loratidine She was not on HCTZ at home apparently. Full code. Consistent carbohydrate 2. Complications: Acute hypoxemic respiratory failure-COPD exacerbation. Allergies: Coded Allergies: lisinopril (Severe, THROAT AND TONGUE SWELLING 03/13/17) Significant Procedures: cxr on 10/28/17 IMPRESSION: No acute abnormality of the chest. Hand X ray on 10/28/17 IMPRESSION: 1. Soft tissue swelling of dorsum of hand. No radiopaque foreign body or air in the soft tissue. No radiographic evidence for osteomyelitis. 2. Degenerative changes of the hand and wrist. 3. Old fracture of the distal radius and ulna. CXR on 10/30/17 MPRESSION: 1. Findings are consistent with mild pulmonary edema. Associated areas of mild bibasilar subsegmental atelectasis are seen. 2. Cardiomegaly with left ventricular configuration. 3. Abnormal appearance of the left glenohumeral joint, unchanged. This may be related to avascular necrosis and secondary degenerative change or an inflammatory arthropathy. Close clinical correlation is requested. wrist xray on 10/31/17 MPRESSION: No radiographic evidence of any osteomyelitis or soft tissue abscess formation identified. No significant change since prior study dated 10/28/2017. CT angio on 11/03/17 IMPRESSION: 1. No evidence of pulmonary embolism. 2. Left lower lobe segmental consolidation representing pneumonia and/or atelectasis. Mild centrilobular emphysema. 3. A number of small lymph nodes located in the mediastinum and both hilar regions, etiology unknown. VTE: negative ECHO on 11/05/17 CONCLUSIONS Normal size left ventricle. Mild concentric left ventricular hypertrophy. Normal left ventricular ejection fraction visually estimated at 60%. "pseudonormal" filling pattern of the left ventricle for age (stage 2 diastolic dysfunction). Normal right ventricular size and function. Normal right atrial size. Mild left atrial dilatation. Trace mitral regurgitation. Trace tricuspid regurgitation. Moderate pulmonary hypertension. Trace pulmonic regurgitation. CXR on 11/07/17 IMPRESSION: No acute pulmonary finding. Pertinent Lab Results: as above Disposition Summary Disposition Principal Diagnosis: Cat bite cellulitis. Additional Diagnosis: Acute hypoxemic respiratory failure-COPD exacerbation. Discharge Disposition: SNF Discharge Instructions General Discharge Information Code Status: Full Code Patient's Diet: Consistent carbohydrate to diet. Patient's Activity: [facility] Follow-Up Instructions/Appts: Please follow-up with primary care physician as an outpatient. Please follow-up with chief executive officer as an outpatient. Please follow-up with circus performer as an outpatient. Medications at Discharge Discharge Medications: Stop taking the following medications: Hydrochlorothiazide (Hydrochlorothiazide) 12.5 MG CAPSULE ORAL DAILY Qty = 90 Tiotropium [place] (Spiriva) 18 MCG CAP.W.DEV Inhale through mouth DAILY Qty = 90 Naproxen (Naproxen) 375 MG TABLET ORAL TWICE DAILY as needed for PAIN Qty = 30 Continue taking these medications: Metformin HCl (Metformin HCl) 500 MG TABLET 1 Tablet ORAL EVERY 48 HOURS (Every 2 days) Qty = 180 Atorvastatin Calcium (Atorvastatin Calcium) 10 MG TABLET 4 Tablet ORAL Every night Qty = 90 Gabapentin (Gabapentin) 300 MG CAPSULE 3 Capsule ORAL THREE TIMES DAILY Qty = 810 Citalopram Hydrobromide (Citalopram HBr) 20 MG TABLET 1 Tablet ORAL DAILY Qty = 90 Fluticasone Propionate/[place] (Advair Hfa 115-21 Mcg Inhaler) 115 MCG-21 MCG/ ACTUATION HFA.AER.AD 2 PUFF ORAL TWICE DAILY Qty = 36 Clopidogrel Bisulfate (Clopidogrel) 75 MG TABLET 1 Tablet ORAL DAILY Qty = 90 Atenolol (Atenolol) 50 MG TABLET 1 Tablet ORAL DAILY Qty = 90 Amlodipine Besylate (Amlodipine Besylate) 5 MG TABLET 1 Tablet ORAL DAILY Qty = 90 Albuterol Sulfate (Proair Hfa) 90 MCG HFA.AER.AD 2 Puff Inhale through mouth EVERY 6 HOURS NEEDED as needed for SHORTNESS OF BREATH Qty = 9 Loratadine (Claritin) 10 MG CAPSULE 1 Tablet ORAL DAILY Qty = 30 Start taking the following new medications: Lactobac Cmb #3/Fos/Pantethine (Probiotic & Acidophilus Cap) 300MM-250 CAPSULE 1 Capsule ORAL DAILY Qty = 30 No Refills Prednisone (Prednisone) 10 MG TABLET 1 Tablet ORAL SEE INSTRUCTIONS Qty = 10 No Refills Instructions: On Take 11/07-09/10 40 MG - 4 tabs daily 09/11-09/12 30 MG - 3 tabs daily 09/13-09/14 20 MG - 2 tabs daily 09/15-09/16 10 MG - 1 tab daily Then Stop Dextromethorphan HBr (Robitussin) 15 MG CAPSULE 1 Capsule ORAL EVERY 8 HOURS NEEDED as needed for cough and congestion Qty = 10 No Refills Copies To: Salima NOBLE,Hilaria; Lucas NOBLE,Michael Attending MD Review Statement Documenting Attending: Kb NOBLE,Alysha
--- NOTE | 2017-11-04 09:33 | PN- Housestaff ---
Subjective Follow-up For: Cat bite cellulitis R ankle pain ?gout Pleural effusion/SOB Subjective: No acute events overnight. Patient states shortness but slightly improved. However still on 6 L oxygen. Right ankle incubator tender. Review of Systems Constitutional: Reports: see HPI. Objective Last 24 Hrs of Vital Signs/I&O Vital Signs Date Time Temp Pulse Resp B/P B/P Pulse O2 O2 Flow FiO2 Mean Ox Delivery Rate 11/04 1342 98.8 60 20 130/70 97 Nasal 6.0L Cannula 11/04 0947 92 Nasal 6.0L Cannula 11/04 0849 Nasal 6.0L Cannula 11/04 0819 60 120/70 11/04 0819 60 120/70 11/04 0800 Nasal 6.0L Cannula 11/04 0600 97.8 57 18 104/60 93 Nasal Cannula 11/04 0000 Nasal 6.0L Cannula 11/03 2219 98.1 61 20 116/70 96 Nasal Cannula 11/03 1859 91 Nasal 7.0L Cannula Intake & Output 11/04 1600 11/04 0800 11/04 0000 Intake Total 750 100 600 Output Total 600 Balance 150 100 600 Intake, Oral 750 100 600 Output, Urine 600 Physical Exam General Appearance: Alert, Oriented X3, Cooperative Skin: improving L hand erythema and cellulitis Cardiovascular: Regular Rate, Normal S1, Normal S2 Lungs: diffuse rhonchi and wheezing Abdomen: Normal Bowel Sounds, Soft, No Tenderness Extremities: right ankle tenderness Vascular: 2+ radial pulses Current Medications: Current Medications Sig/Romy Start time Last Medication Dose Route Stop Time Status Admin Acetaminophen 650 MG Q6-PRN PRN 11/02 1100 AC PO Acetylcysteine 2 ML BID 11/04 1357 AC INH Albuterol Sulfate 3 ML BID 10/31 2100 AC 11/04 INH 0946 Amlodipine Besylate 5 MG DAILY 10/29 1000 AC 11/04 PO 0819 Amoxicillin/ 875 MG Q12 11/03 2100 AC 11/04 Clavulanate Potassium PO 0819 Atenolol 50 MG DAILY 10/28 2152 AC 11/04 PO 0819 Atorvastatin Calcium 40 MG QPM 10/28 220 AC 11/03 PO 2030 Budesonide/ 2 PUF BID 10/28 2199 AC 11/04 Formoterol Fumarate INH 0819 Citalopram 20 MG DAILY 10/28 2152 AC 11/04 Hydrobromide PO 0818 Clopidogrel Bisulfate 75 MG DAILY 10/29 1000 AC 11/04 PO 0818 Enoxaparin Sodium 40 MG DAILY 10/29 1000 AC 11/04 SC 0820 Gabapentin 900 MG TID 10/28 2200 AC 11/04 PO 1441 Guaifenesin 600 MG BID 10/30 1000 AC 11/04 PO 0819 Insulin Aspart 0 TIDAC 10/29 0800 AC 11/03 SC 1750 Lactobacillus 1 CAP DAILY 10/29 1000 AC 11/04 Acidophilus PO 0818 Loratadine 10 MG DAILY 10/30 0913 AC 11/04 PO 0819 Methylprednisolone 40 MG Q8 11/04 1400 AC 11/04 IV 1452 Methylprednisolone 125 MG ONCE ONE 11/04 0915 DC 11/04 IV 11/04 0916 1001 Tramadol HCl 50 MG Q6 10/29 1200 AC 11/04 PO 1211 Last 24 Hrs of Lab/Kendrick Results Last 24 Hrs of Labs/Mics: Laboratory Tests 11/04/17 1000: CBC w Diff NO MAN DIFF REQ, RBC 3.73 L, MCV 93.9, MCH 30.7, MCHC 32.6 L, RDW 13.4, MPV 8.7, Gran % 72.4, Lymphocytes % 15.9 L, Monocytes % 5.8, Eosinophils % 5.0, Basophils % 0.9, Absolute Granulocytes 5.6, Absolute Lymphocytes 1.2, Absolute Monocytes 0.4, Absolute Eosinophils 0.4, Absolute Basophils 0.1 Assessment/Plan Assessment: 82 yo f with a PMH significant for CAD s/p triple bypass (2009 [place]), left carotid stenosis, DM, HTN, COPD not on home oxygen who presents to the ED after a cat bite with worsening swelling while on oral Augmentin x2 days. Problem list: Left hand cat bite with cellulitis Shortness of breath ?fluid overload History of gout Plan: -switched from unasyn to po augmentin. cont po augmentin -f/u echo -F/U cardiology consult -pulm consulted: Start IV Solu-Medrol, TRC nebs, Mucomyst, -ProBNP elevated 854 -CTA negative for PE. ?Pna - will watch off abx as no fever or leukocytosis -cont tylenol for pain -SOB 2/2 to fluid congestion. IV lasix 20 x4 given thus far. -ankle XR: 1. Mild osteoarthrosis.2. Nonspecific mild periarticular soft tissue swelling.3. Arterial calcifications.4. Large posterior superior and small posterior plantar calcaneal spurs. -hand xr: Soft tissue swelling of dorsum of hand. No evidence for osteomyelitis. -wrist xr: No radiographic evidence of any osteomyelitis or soft tissue abscess. No significant change since prior study dated 10/28/2017 -repeat cxr: mild pulmonary edema. Associated areas of mild bibasilar subsegmental atelectasis -Continue incentive spirometry, fexofenadine that she takes at home, Mucinex for congestion -cont probiotic for loose stool. Will consider C. difficile if she continues to have loose stool. -seen by plastics. outpatient f.u -f/u blood cx -Accu-Cheks and NovoLog sliding scale -Continue home meds DVT ppx: sc Enoxaparin Code: FULL Problem List: 1. Right ankle pain 2. Pulmonary congestion 3. Shortness of breath 4. Cat bite of left hand 5. Cellulitis of left hand Pain Ratin Pain Location: L hand Pain Goal: Pain 4 or less Pain Plan: pathway Tomorrow's Labs & Rationales: none
[2017-11-04 11:13] LABS: ABSOLUTE BASOPHIL COUNT 0.1 /CUMM (0.0-0.2); ABSOLUTE EOSINOPHIL COUNT 0.4 /CUMM (0.0-0.7); ABSOLUTE GRANULOCYTE CT 5.6 /CUMM (1.4-6.5); ABSOLUTE LYMPH COUNT 1.2 /CUMM (1.2-3.4); ABSOLUTE MONOCYTE COUNT 0.4 /CUMM (0.10-0.60); BASOPHIL % 0.9 % (0.0-2.0); GRANULOCYTE % 72.4 % (42.2-75.2); MEAN CORPUSCULAR HGB 30.7 PG (27.0-31.0); MEAN CORPUSCULAR HGB CONC 32.6 G/DL (33.0-37.0); MEAN CORPUSCULAR VOLUME 93.9 FL (81.0-99.0); MEAN PLATELET VOLUME 8.7 FL (7.4-10.4); PLATELET COUNT 362 /CUMM (130-400); RBC DISTRIBUTION WIDTH 13.4 % (11.5-14.5); RED BLOOD CELL CT 3.73 /CUMM (4.20-5.40); WHITE BLOOD CELL COUNT 7.7 /CUMM (4.8-10.8)
--- NOTE | 2017-11-04 11:50 | PN- Att Addend ---
Attending Addendum Attending Brief Note Patient seen and examined, left hand looks much better. Oxygen requirement is still remains very high at 6 L. Vital Signs Date Time Temp Pulse Resp B/P B/P Pulse O2 O2 Flow FiO2 Mean Ox Delivery Rate 11/04 0947 92 Nasal 6.0L Cannula 11/04 0849 Nasal 6.0L Cannula 11/04 0819 60 120/70 11/04 0819 60 120/70 11/04 0800 Nasal 6.0L Cannula 11/04 0600 97.8 57 18 104/60 93 Nasal Cannula 11/04 0000 Nasal 6.0L Cannula 11/03 2219 98.1 61 20 116/70 96 Nasal Cannula 11/03 1859 91 Nasal 7.0L Cannula 11/03 1600 93 Nasal 6.0L Cannula 11/03 1409 98.5 61 20 140/70 92 Nasal 6.0L Cannula on exam: aox3, nad. cv; s1,s2, rrr resp; + rhonchi and some scattered wheeze. abd; soft, nt, bs+ ext; no edema Laboratory Tests 11/04 1000 Hematology CBC w Diff NO MAN DIFF REQ WBC (4.8 - 10.8 /CUMM) 7.7 RBC (4.20 - 5.40 /CUMM) 3.73 L Hgb (12.0 - 16.0 G/DL) 11.4 L Hct (37 - 47 %) 35.0 L MCV (81.0 - 99.0 FL) 93.9 MCH (27.0 - 31.0 PG) 30.7 MCHC (33.0 - 37.0 G/DL) 32.6 L RDW (11.5 - 14.5 %) 13.4 Plt Count (130 - 400 /CUMM) 362 MPV (7.4 - 10.4 FL) 8.7 Gran % (42.2 - 75.2 %) 72.4 Lymphocytes % (20.5 - 51.1 %) 15.9 L Monocytes % (1.7 - 9.3 %) 5.8 Eosinophils % (0 - 5 %) 5.0 Basophils % (0.0 - 2.0 %) 0.9 Absolute Granulocytes (1.4 - 6.5 /CUMM) 5.6 Absolute Lymphocytes (1.2 - 3.4 /CUMM) 1.2 Absolute Monocytes (0.10 - 0.60 /CUMM) 0.4 Absolute Eosinophils (0.0 - 0.7 /CUMM) 0.4 Absolute Basophils (0.0 - 0.2 /CUMM) 0.1 A/P: 82 y/o F with pmh sig for CAD s/p triple bypass (2009 [place]), left carotid stenosis, DM, HTN, COPD not on home oxygen, admitted with left hand cellulitis 2 /2 to cat bite, failing outpatient treatment. Cellulitis is better. Plastic surgery did not recommend any intervention. Antibiotics have been switched to oral Augmentin. Patient remains hypoxic and requires 6 L of oxygen. Echo pending. Cardiology and pulmonology eval will be obtained. CT scan does not show any evidence of pulmonary embolism, it does show evidence of atelectasis. Patient does have some wheeze and rhonchi therefore will start her on IV steroids today. We'll follow further recommendations from cardiology and pulmonology. Continue all other meds. DT px; Lovenox. Will benefit by going to [facility] due to significant hypoxia. D/W patient's daughter and .
[2017-11-04 13:42] VITALS: BP 130/70
--- NOTE | 2017-11-04 14:46 | Cons- Pulmonary ---
General Information and HPI Consulting Request Date of Consult: 11/04/17 Requested By: Dr. Quiles Reason for Consult: hypoxemia Source of Information: patient Exam Limitations: no limitations History of Present Illness: 82-year-old woman. Consultation requested for hypoxemia. She has a history of coronary disease with a CABG in 2009 at [facility]. History of diabetes high blood pressure left carotid stenosis and COPD not on home oxygen. For her COPD she is on Advair at home and she follows with a spray gunner at [facility]. She was told to stop Spiriva due to the fact that she was doing better. The previous records are unavailable at this time. She is also here for cellulitis after cat bite. No leukocytosis. po2 on 11/01 was 80. Currently on 6LNC. CTA without PE, LLL atelectasis vs consolidation. Emphysematous changes. No fevers, no chlils, no n/v/d/c. No palpitations. Allergies/Medications Allergies: Coded Allergies: lisinopril (Severe, THROAT AND TONGUE SWELLING 03/13/17) Home Med List: Albuterol Sulfate (Proair Hfa) 90 MCG HFA.AER.AD 2 PUF INH Q6-PRN PRN SHORTNESS OF BREATH (Reported) Amlodipine Besylate 5 MG TABLET 1 TAB PO DAILY HEART (Reported) Atenolol 50 MG TABLET 1 TAB PO DAILY HEART (Reported) Atorvastatin Calcium 10 MG TABLET 4 TAB PO QPM CHOLESTEROL (Reported) Citalopram Hydrobromide (Citalopram HBr) 20 MG TABLET 1 TAB PO DAILY MENTAL HEALTH (Reported) Clopidogrel Bisulfate (Clopidogrel) 75 MG TABLET 1 TAB PO DAILY BLOOD THINNER (Reported) Fluticasone Propionate/[place]me (Advair Hfa 115-21 Mcg Inhaler) 115 MCG-21 MCG/ ACTUATION HFA.AER.AD 2 PUFF PO BID BREATHING PROBLEMS (Reported) Gabapentin 300 MG CAPSULE 3 CAP PO TID UNKNOWN (Reported) Lactobac Cmb #3/Fos/Pantethine (Probiotic & Acidophilus Cap) 300MM-250 CAPSULE 1 CAP PO DAILY GI HEALTH Metformin HCl 500 MG TABLET 1 TAB PO Q48 DIABETES (Reported) Current Medications: Current Medications Sig/Romy Start time Last Medication Dose Route Stop Time Status Admin Acetaminophen 650 MG Q6-PRN PRN 11/02 1100 AC PO Acetylcysteine 2 ML BID 11/04 1357 AC INH Albuterol Sulfate 3 ML BID 10/31 2100 AC 11/04 INH 0946 Amlodipine Besylate 5 MG DAILY 10/29 1000 AC 11/04 PO 0819 Amoxicillin/ 875 MG Q12 11/03 2100 AC 11/04 Clavulanate Potassium PO 0819 Atenolol 50 MG DAILY 10/28 2153 AC 11/04 PO 0819 Atorvastatin Calcium 40 MG QPM 10/28 2200 AC 11/03 PO 2030 Budesonide/ 2 PUF BID 10/28 2200 AC 11/04 Formoterol Fumarate INH 0819 Citalopram 20 MG DAILY 10/28 2153 AC 11/04 Hydrobromide PO 0818 Clopidogrel Bisulfate 75 MG DAILY 10/29 1000 AC 11/04 PO 0818 Enoxaparin Sodium 40 MG DAILY 10/29 1000 AC 11/04 SC 0820 Gabapentin 900 MG TID 10/28 2200 AC 11/04 PO 0819 Guaifenesin 600 MG BID 10/30 1000 AC 11/04 PO 0819 Insulin Aspart 0 TIDAC 10/29 0800 AC 11/03 SC 1750 Lactobacillus 1 CAP DAILY 10/29 1000 AC 11/04 Acidophilus PO 0818 Loratadine 10 MG DAILY 10/30 0913 AC 11/04 PO 0819 Methylprednisolone 40 MG Q8 11/04 1400 AC IV Methylprednisolone 125 MG ONCE ONE 11/04 0915 DC 11/04 IV 11/04 0916 1001 Tramadol HCl 50 MG Q6 10/29 1200 AC 11/04 PO 1211 Review of Systems Comments 18 point review of systems was performed and reviewed. Please see pertinent positives and pertinent negatives in the HPI. Otherwise ROS is negative. 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 Home Smoking Status: Former Smoker ETOH Use: denies use Illicit Drug Use: denies illicit drug use Exam & Diagnostic Data Last 24 Hrs of Vital Signs/I&O Vital Signs Date Time Temp Pulse Resp B/P B/P Pulse O2 O2 Flow FiO2 Mean Ox Delivery Rate 11/04 1342 98.8 60 20 130/70 97 Nasal 6.0L Cannula 11/04 0947 92 Nasal 6.0L Cannula 11/04 0849 Nasal 6.0L Cannula 11/04 0819 60 120/70 11/04 0819 60 120/70 11/04 0800 Nasal 6.0L Cannula 11/04 0600 97.8 57 18 104/60 93 Nasal Cannula 11/04 0000 Nasal 6.0L Cannula 11/03 2219 98.1 61 20 116/70 96 Nasal Cannula 11/03 1859 91 Nasal 7.0L Cannula 11/03 1600 93 Nasal 6.0L Cannula Intake & Output 11/04 1600 11/04 0800 11/04 0000 Intake Total 750 100 600 Output Total 600 Balance 150 100 600 Intake, Oral 750 100 600 Output, Urine 600 Physical Exam Other Physical Findings: Generally - awake Head and neck -nasal cannula Cardiovascular - S1, S2 Lungs - bilateral rhonchi Abdomen - Bowel sounds positive, soft, non-tender Extremities - without edema Last 48 Hrs of Labs/Kendrick: Laboratory Tests 11/04/17 1000: CBC w Diff NO MAN DIFF REQ, RBC 3.73 L, MCV 93.9, MCH 30.7, MCHC 32.6 L, RDW 13.4, MPV 8.7, Gran % 72.4, Lymphocytes % 15.9 L, Monocytes % 5.8, Eosinophils % 5.0, Basophils % 0.9, Absolute Granulocytes 5.6, Absolute Lymphocytes 1.2, Absolute Monocytes 0.4, Absolute Eosinophils 0.4, Absolute Basophils 0.1 11/03/17 0724: Anion Gap 12, Estimated GFR > 60, BUN/Creatinine Ratio 26.3 H, Troponin I < 0.01, [id number] Pept 834 H Assessment/Plan Impression/Plan: Impression 82 year old woman * acute hypoxemic respiratory failure - this can be secondary to an exacerbation of COPD along with atelectasis due to inactivity Plan -solumedrol 40mg iv q8h -trc/nebs -mucomyst nebulized bid x 72 hours -continue abx - check sputum culture -check BNP -ECHOcardiogram -cardiology consultation has been requested by primary team -please obtain relevant imaging/cardio/pulmonary records from [facility] DVT prophylaxis at all times Consult Acknowledgment - Thank you for your consult request.
[2017-11-04 22:05] VITALS: BP 142/80
[2017-11-05 06:23] VITALS: BP 160/62
--- NOTE | 2017-11-05 09:11 | PN- Housestaff ---
Subjective Follow-up For: Cat bite cellulitis R ankle pain ?gout Pleural effusion/SOB Subjective: Patient had bleeding from her mouth last night. Cellulitis improved. SOB improved. Review of Systems Constitutional: Reports: see HPI. Objective Last 24 Hrs of Vital Signs/I&O Vital Signs Date Time Temp Pulse Resp B/P B/P Pulse O2 O2 Flow FiO2 Mean Ox Delivery Rate 11/05 2137 98.6 62 20 124/60 94 11/05 1926 94 Nasal 4.0L Cannula 11/05 1528 97.9 60 20 130/60 96 11/05 0853 93 Nasal 4.0L Cannula 11/05 0831 62 130/100 11/05 0800 Nasal 4.0L Cannula 11/05 0623 97.8 60 20 160/62 92 Nasal 4.0L Cannula 11/04 2342 Nasal 4.0L Cannula Intake & Output 11/05 1600 11/05 0800 11/05 0000 Intake Total 1970 360 360 Output Total 300 Balance 1970 60 360 Intake, Oral 1970 360 360 Number 2 Bowel Movements Output, Urine 300 Physical Exam General Appearance: Alert, Oriented X3, Cooperative Skin: improved L hand cellulitis and swelling HEENT: small erythematous pin point markings in upper palates b/l Cardiovascular: Regular Rate, Normal S1, Normal S2 Abdomen: Normal Bowel Sounds, Soft, No Tenderness Current Medications: Current Medications Sig/Romy Start time Last Medication Dose Route Stop Time Status Admin Acetaminophen 650 MG Q6-PRN PRN 11/02 1100 AC PO Acetylcysteine 2 ML BID 11/04 1357 AC 11/05 INH 1925 Albuterol Sulfate 3 ML BID 10/31 2100 AC 11/05 INH 1925 Amlodipine Besylate 5 MG DAILY 10/29 1000 AC 11/05 PO 0833 Amoxicillin/ 875 MG Q12 11/03 2100 AC 11/05 Clavulanate Potassium PO 2152 Atenolol 50 MG DAILY 10/28 2153 AC 11/05 PO 0831 Atorvastatin Calcium 40 MG QPM 10/280 AC 11/05 PO 2152 Budesonide/ 2 PUF BID 10/28 2199 AC 11/05 Formoterol Fumarate INH 215 Citalopram 20 MG DAILY 10/28 2153 AC 11/05 Hydrobromide PO 0830 Clopidogrel Bisulfate 75 MG DAILY 10/29 1000 AC 11/05 PO 0833 Enoxaparin Sodium 40 MG DAILY 10/29 1000 DC 11/04 SC 0820 Furosemide 40 MG ONCE ONE 11/05 1345 DC 11/05 IV 11/05 1346 1434 Gabapentin 900 MG TID 10/28 2200 AC 11/05 PO 215 Guaifenesin 600 MG BID 10/30 1000 AC 11/05 PO 215 Insulin Aspart 0 TIDAC 10/29 0800 AC 11/05 SC 1837 Lactobacillus 1 CAP DAILY 10/29 1000 AC 11/05 Acidophilus PO 0833 Loratadine 10 MG DAILY 10/30 0913 AC 11/05 PO 0832 Methylprednisolone 40 MG Q12 11/05 2100 AC 11/05 IV 2151 Methylprednisolone 40 MG Q8 11/04 1400 DC 11/05 IV 0517 Tramadol HCl 50 MG Q6 10/29 1200 AC 11/05 PO 183 Last 24 Hrs of Lab/Kendrick Results Last 24 Hrs of Labs/Mics: Laboratory Tests 11/05/17 0800: PT 12.7 H, INR 1.16, APTT 32, CBC w Diff NO MAN DIFF REQ, RBC 3.72 L, MCV 93.6 , MCH 31.5 H, MCHC 33.7, RDW 13.1, MPV 8.8, Gran % 89.2 H, Lymphocytes % 10.1 L, Monocytes % 0.7 L, Eosinophils % 0, Basophils % 0, Absolute Granulocytes 8.0 H, Absolute Lymphocytes 0.9 L, Absolute Monocytes 0.1, Absolute Eosinophils 0, Absolute Basophils 0 Microbiology 11/05 1645 LOWER RESP: Respiratory Culture - CAN Cancelled: NUMBER OF SQUAMOUS CELLS INDICATES POOR QUALITY SPECIMEN 11/05 1645 LOWER RESP: Gram Stain - CAN Cancelled: NUMBER OF SQUAMOUS CELLS INDICATES POOR QUALITY SPECIMEN Assessment/Plan Assessment: 82 yo f with a PMH significant for CAD s/p triple bypass (2009 [place]), left carotid stenosis, DM, HTN, COPD not on home oxygen who presents to the ED after a cat bite with worsening swelling while on oral Augmentin x2 days. Problem list: Left hand cat bite with cellulitis Shortness of breath ?fluid overload History of gout Plan: -decreased steroids q12 -switched from unasyn to po augmentin. cont po augmentin x2 more days -monitor I/o, daily weights -f/u echo -given lasix 40mg IV. f/u AM cxr -F/U cardiology consult -pulm consulted: Start IV Solu-Medrol, TRC nebs, Mucomyst, -ProBNP elevated 854 -CTA negative for PE. ?Pna - will watch off abx as no fever or leukocytosis -cont tylenol for pain -SOB 2/2 to fluid congestion. IV lasix 20 x4 given thus far. -ankle XR: 1. Mild osteoarthrosis.2. Nonspecific mild periarticular soft tissue swelling.3. Arterial calcifications.4. Large posterior superior and small posterior plantar calcaneal spurs. -hand xr: Soft tissue swelling of dorsum of hand. No evidence for osteomyelitis. -wrist xr: No radiographic evidence of any osteomyelitis or soft tissue abscess. No significant change since prior study dated 10/28/2017 -repeat cxr: mild pulmonary edema. Associated areas of mild bibasilar subsegmental atelectasis -Continue incentive spirometry, fexofenadine that she takes at home, Mucinex for congestion -cont probiotic for loose stool. Will consider C. difficile if she continues to have loose stool. -seen by plastics. outpatient f.u -f/u blood cx -Accu-Cheks and NovoLog sliding scale -Continue home meds DVT ppx: ALPS due to bleeding Code: FULL Problem List: 1. Pulmonary congestion 2. Shortness of breath 3. Cellulitis of left hand 4. Cat bite of left hand Pain Ratin Pain Location: r foot Pain Goal: Pain 4 or less Pain Plan: pathway Tomorrow's Labs & Rationales: bep
[2017-11-05 09:17] LABS: ABSOLUTE BASOPHIL COUNT 0 /CUMM (0.0-0.2); ABSOLUTE EOSINOPHIL COUNT 0 /CUMM (0.0-0.7); ABSOLUTE LYMPH COUNT 0.9 /CUMM (1.2-3.4); ABSOLUTE MONOCYTE COUNT 0.1 /CUMM (0.10-0.60); BASOPHIL % 0 % (0.0-2.0); EOSINOPHIL % 0 % (0-5); HEMATOCRIT 34.8 % (37-47); MEAN CORPUSCULAR HGB 31.5 PG (27.0-31.0); MEAN CORPUSCULAR HGB CONC 33.7 G/DL (33.0-37.0); MEAN CORPUSCULAR VOLUME 93.6 FL (81.0-99.0); MEAN PLATELET VOLUME 8.8 FL (7.4-10.4); RBC DISTRIBUTION WIDTH 13.1 % (11.5-14.5); RED BLOOD CELL CT 3.72 /CUMM (4.20-5.40)
[2017-11-05 09:27] LABS: PT 12.7 SEC (9.4-12.5); PTT 32 SEC (25-37)
[2017-11-05 09:42] LABS: GRANULOCYTE % 89.2 % (42.2-75.2); PLATELET COUNT 359 /CUMM (130-400)
--- NOTE | 2017-11-05 10:59 | PN- Infect Dx ---
Subjective Subjective: Afebrile on steroids. She notes shortness of breath, with a cough, productive of white/yellow sputum. She has no further discomfort in her left hand. Objective Last 24 Hrs of Vital Signs/I&O Vital Signs Date Time Temp Pulse Resp B/P B/P Pulse O2 O2 Flow FiO2 Mean Ox Delivery Rate 11/05 0853 93 Nasal 4.0L Cannula 11/05 0831 62 130/100 11/05 0623 97.8 60 20 160/62 92 Nasal 4.0L Cannula 11/04 2342 Nasal 4.0L Cannula 11/04 2205 98.7 56 18 142/80 92 Nasal 4.0L Cannula 11/04 1845 98 Nasal 6.0L Cannula 11/04 1600 91 Nasal 6.0L Cannula 11/04 1342 98.8 60 20 130/70 97 Nasal 6.0L Cannula Intake & Output 11/05 1600 11/05 0800 11/05 0000 Intake Total 360 360 Output Total 300 Balance 60 360 Intake, Oral 360 360 Output, Urine 300 Physical Exam Other Physical Findings: She appears comfortable in no acute distress Lungs bibasilar crackles Heart regular rhythm with no murmur Extremities resolution of the erythema and edema over the dorsum of the left hand, with no tenderness to palpation; no cyanosis, clubbing or edema of the lower extremities Results Last 24 Hours of Lab Results: Laboratory Tests 11/05 0800 Coagulation PT (9.4 - 12.5 SEC) 12.7 H INR (0.90 - 1.19) 1.16 APTT (25 - 37 SEC) 32 Hematology CBC w Diff NO MAN DIFF REQ WBC (4.8 - 10.8 /CUMM) 9.0 RBC (4.20 - 5.40 /CUMM) 3.72 L Hgb (12.0 - 16.0 G/DL) 11.7 L Hct (37 - 47 %) 34.8 L MCV (81.0 - 99.0 FL) 93.6 MCH (27.0 - 31.0 PG) 31.5 H MCHC (33.0 - 37.0 G/DL) 33.7 RDW (11.5 - 14.5 %) 13.1 Plt Count (130 - 400 /CUMM) 359 MPV (7.4 - 10.4 FL) 8.8 Gran % (42.2 - 75.2 %) 89.2 H Lymphocytes % (20.5 - 51.1 %) 10.1 L Monocytes % (1.7 - 9.3 %) 0.7 L Eosinophils % (0 - 5 %) 0 Basophils % (0.0 - 2.0 %) 0 Absolute Granulocytes (1.4 - 6.5 /CUMM) 8.0 H Absolute Lymphocytes (1.2 - 3.4 /CUMM) 0.9 L Absolute Monocytes (0.10 - 0.60 /CUMM) 0.1 Absolute Eosinophils (0.0 - 0.7 /CUMM) 0 Absolute Basophils (0.0 - 0.2 /CUMM) 0 Last 24 Hours of Kendrick Results: No recent cultures Recent Imaging Studies: CTA of the chest November 03 reveals left lower lobe segmental consolidation, with no evidence of pulmonary embolism Assessment/Plan ID Impression: Overall improved, with temperatures and white blood cell count remaining normal (now on steroids for a presumed COPD exacerbation) on Augmentin Day 8 of treatment for a cellulitis of the left hand secondary to a cat bite, with resolution of her left hand inflammation. Her respiratory distress may be multifactorial, secondary to a COPD exacerbation, mild fluid overload and possible left lower lobe pneumonia, which should be adequately treated with the Augmentin. Suggestion: 1. Further management of her respiratory distress per Pulmonary 2. Sputum culture if possible 3. Continue Augmentin for 2 more days
--- NOTE | 2017-11-05 11:01 | Cons- Cardiology ---
General Information and HPI Consulting Request Date of Consult: 11/05/17 Requested By: Alysha Quiles MD Reason for Consult: Shortness of breath. Exam Limitations: poor historian History of Present Illness: Mrs. 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 As a result she received the following diuretic therapy (IV furosemide: 20 mg 1 on 10/30/2017; 20 mg 2 on 10/31/2017; 20 mg 1 on 11/01/2017; 20 mg 1 on 11/02 Unfortunately, while hospitalized and receiving diuretic therapy for pulmonary edema she has not had strict input/output's or daily weights and her follow-up CXR from 11/01/2017 was "fairly similar" tumor 10/30/2017 study. At present she is on nasal oxygen (4 L), TRC/nebs, steroids, antibiotics, etc. and states that her breathing has improved, but is not at her baseline. Allergies/Medications Allergies: Coded Allergies: lisinopril (Severe, THROAT AND TONGUE SWELLING 03/13/17) Home Med List: Albuterol Sulfate (Proair Hfa) 90 MCG HFA.AER.AD 2 PUF INH Q6-PRN PRN SHORTNESS OF BREATH (Reported) Amlodipine Besylate 5 MG TABLET 1 TAB PO DAILY HEART (Reported) Atenolol 50 MG TABLET 1 TAB PO DAILY HEART (Reported) Atorvastatin Calcium 10 MG TABLET 4 TAB PO QPM CHOLESTEROL (Reported) Citalopram Hydrobromide (Citalopram HBr) 20 MG TABLET 1 TAB PO DAILY MENTAL HEALTH (Reported) Clopidogrel Bisulfate (Clopidogrel) 75 MG TABLET 1 TAB PO DAILY BLOOD THINNER (Reported) Fluticasone Propionate/Salme (Advair Hfa 115-21 Mcg Inhaler) 115 MCG-21 MCG/ ACTUATION HFA.AER.AD 2 PUFF PO BID BREATHING PROBLEMS (Reported) Gabapentin 300 MG CAPSULE 3 CAP PO TID UNKNOWN (Reported) Lactobac Cmb #3/Fos/Pantethine (Probiotic & Acidophilus Cap) 300MM-250 CAPSULE 1 CAP PO DAILY GI HEALTH Metformin HCl 500 MG TABLET 1 TAB PO Q48 DIABETES (Reported) Review of Systems Review of Systems: A 14 point system review was obtained and was noncontributory, other than as above. 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 Home Smoking Status: Former Smoker ETOH Use: denies use Illicit Drug Use: denies illicit drug use Exam & Diagnostic Data Vital Signs and I&O Vital Signs Date Time Temp Pulse Resp B/P B/P Pulse O2 O2 Flow FiO2 Mean Ox Delivery Rate 11/05 0853 93 Nasal 4.0L Cannula 11/05 0831 62 130/100 11/05 0623 97.8 60 20 160/62 92 Nasal 4.0L Cannula 11/04 2342 Nasal 4.0L Cannula 11/04 2205 98.7 56 18 142/80 92 Nasal 4.0L Cannula 11/04 1845 98 Nasal 6.0L Cannula 11/04 1600 91 Nasal 6.0L Cannula 11/04 1342 98.8 60 20 130/70 97 Nasal 6.0L Cannula Intake & Output 11/05 1600 11/05 0800 11/05 0000 11/04 1600 11/04 0800 11/04 0000 Intake Total 360 360 750 100 600 Output Total 300 600 Balance 60 360 150 100 600 Intake, Oral 360 360 750 100 600 Output, Urine 300 600 Physical Exam: Well-developed, overweight elderly female in no acute distress with nasal oxygen in place. Signs: See above. HEENT: Normocephalic, atraumatic, EOMI, moist mucous membranes. Neck: No JVD, no bruits. Lungs: Occasional rhonchi and expiratory wheezing. Heart: S1, S2 with grade 1-2/6 systolic murmur. No gallop or rub. PMI not well felt. Abdomen: Soft, nontender, positive bowel sounds. Extremities: No edema. Labs/Kendrick Results: Laboratory Tests 11/05 11/04 0800 1000 Coagulation PT (9.4 - 12.5 SEC) 12.7 H INR (0.90 - 1.19) 1.16 APTT (25 - 37 SEC) 32 Hematology CBC w Diff NO MAN DIFF REQ NO MAN DIFF REQ WBC (4.8 - 10.8 /CUMM) 9.0 7.7 RBC (4.20 - 5.40 /CUMM) 3.72 L 3.73 L Hgb (12.0 - 16.0 G/DL) 11.7 L 11.4 L Hct (37 - 47 %) 34.8 L 35.0 L MCV (81.0 - 99.0 FL) 93.6 93.9 MCH (27.0 - 31.0 PG) 31.5 H 30.7 MCHC (33.0 - 37.0 G/DL) 33.7 32.6 L RDW (11.5 - 14.5 %) 13.1 13.4 Plt Count (130 - 400 /CUMM) 359 362 MPV (7.4 - 10.4 FL) 8.8 8.7 Gran % (42.2 - 75.2 %) 89.2 H 72.4 Lymphocytes % (20.5 - 51.1 %) 10.1 L 15.9 L Monocytes % (1.7 - 9.3 %) 0.7 L 5.8 Eosinophils % (0 - 5 %) 0 5.0 Basophils % (0.0 - 2.0 %) 0 0.9 Absolute Granulocytes (1.4 - 6.5 /CUMM) 8.0 H 5.6 Absolute Lymphocytes (1.2 - 3.4 /CUMM) 0.9 L 1.2 Absolute Monocytes (0.10 - 0.60 /CUMM) 0.1 0.4 Absolute Eosinophils (0.0 - 0.7 /CUMM) 0 0.4 Absolute Basophils (0.0 - 0.2 /CUMM) 0 0.1 Diagnostic Data EKG Results 11/03/2017: Sinus rhythm, leftward axis, and late precordial transition. Less ST segment depression in the anterolateral and high lateral leads when compared to ER tracing from 10/28/2017. Precordial leads CXR Results 11/01/2017: Mild cardiomegaly, pulmonary venous congestion and mild interstitial edema at the lung bases, fairly similar to 10/30/2017 chest x-ray. A small left-sided pleural effusion. Other Results Chest CTA 11/03/2017: 1. No evidence of pulmonary embolism. 2. Left lower lobe segmental consolidation representing pneumonia and/or atelectasis. Mild centrilobular emphysema. 3. A number of small lymph nodes located in the mediastinum and both hilar regions, etiology unknown. VTE: negative Assessment/Plan Assessment/Plan [id number] w/ hx of obesity, long-standing tobacco use, COPD, HTN, HLD, DM, THELMA inhibitor angioedema, vascular disease (multiple stents to LEs; carotid artery disease), & CAD(s/p CABGx3 2009) who presented w/ L hand cellulitis after being bitten by her cat and who subsequently became increasingly SOB w/ CXR evidence of early pulmonary interstitial edema w/o prior hx of HF or OP diuretic therapy. As a result she received the following diuretic therapy (IV furosemide: 20 mg 1 on 10/30/2017; 20 mg 2 on 10/31/2017; 20 mg 1 on 11/01/2017; 20 mg 1 on 11/02 Unfortunately, while hospitalized and receiving diuretic therapy for pulmonary edema she has not had strict input/output's or daily weights and her follow-up CXR from 11/01/2017 was "fairly similar" to the 10/30/2017 study. At present she is on nasal oxygen (4 L), TRC/nebs, steroids, antibiotics, etc. and states that her breathing has improved, but is not at her baseline. Recommendations: * Strict inputs/outputs, daily weights, etc. * Echocardiogram to assess left ventricular systolic/diastolic function, right ventricular function in light of COPD, estimated PA systolic pressure, etc. * Give IV furosemide 40 mg times one and reassess the need for further IV diuresis in the a.m. * Follow-up CXR in a.m. following a good diuresis. * Continue oxygen, TRC/nebs, steroids, antibiotics, etc. * Follow-up on pulmonary recommendations. * DVT prophylaxis. Consult Acknowledgment - Thank you for your consult request.
--- NOTE | 2017-11-05 11:22 | PN- Pulmonary ---
Subjective HPI/Critical Care Issues: pt seen and examined o2 reduced from 6 to 4LNC Objective Current Medications: Current Medications Sig/Romy Start time Last Medication Dose Route Stop Time Status Admin Acetaminophen 650 MG Q6-PRN PRN 11/02 1100 AC PO Acetylcysteine 2 ML BID 11/04 1357 AC 11/05 INH 0845 Albuterol Sulfate 3 ML BID 10/31 2100 AC 11/05 INH 0845 Amlodipine Besylate 5 MG DAILY 10/29 1000 AC 11/05 PO 0833 Amoxicillin/ 875 MG Q12 11/03 2100 AC 11/05 Clavulanate Potassium PO 0832 Atenolol 50 MG DAILY 10/28 2153 AC 11/05 PO 0831 Atorvastatin Calcium 40 MG QPM 10/28 2200 AC 11/04 PO 2036 Budesonide/ 2 PUF BID 10/28 2200 AC 11/05 Formoterol Fumarate INH 0831 Citalopram 20 MG DAILY 10/28 2153 AC 11/05 Hydrobromide PO 0830 Clopidogrel Bisulfate 75 MG DAILY 10/29 1000 AC 11/05 PO 0833 Enoxaparin Sodium 40 MG DAILY 10/29 1000 DC 11/04 SC 0820 Gabapentin 900 MG TID 10/28 2200 AC 11/05 PO 0832 Guaifenesin 5 ML ONCE ONE 11/04 2114 DC 11/04 PO 11/04 Guaifenesin 600 MG BID 10/30 1000 AC 11/05 PO 0832 Insulin Aspart 0 TIDAC 10/29 0800 AC 11/05 SC 0834 Lactobacillus 1 CAP DAILY 10/29 1000 AC 11/05 Acidophilus PO 0833 Loratadine 10 MG DAILY 10/30 0913 AC 11/05 PO 0832 Methylprednisolone 40 MG Q12 11/05 2100 AC IV Methylprednisolone 40 MG Q8 11/04 1400 DC 11/05 IV 0517 Tramadol HCl 50 MG Q6 10/29 1200 AC 11/05 PO 0522 Vital Signs & I&O Last 24 Hrs of Vitals and I&O: Vital Signs Date Time Temp Pulse Resp B/P B/P Pulse O2 O2 Flow FiO2 Mean Ox Delivery Rate 11/05 0853 93 Nasal 4.0L Cannula 11/05 0831 62 130/100 11/05 06 97.8 60 20 160/62 92 Nasal 4.0L Cannula 11/04 2342 Nasal 4.0L Cannula 04/17 2205 98.7 56 18 142/80 92 Nasal 4.0L Cannula 11/04 1845 98 Nasal 6.0L Cannula 11/04 1600 91 Nasal 6.0L Cannula 11/04 1342 98.8 60 20 130/70 97 Nasal 6.0L Cannula Intake & Output 11/05 1600 11/05 0800 11/05 0000 Intake Total 360 360 Output Total 300 Balance 60 360 Intake, Oral 360 360 Output, Urine 300 Exam Other Physical Findings: Generally - awake Head and neck -nasal cannula Cardiovascular - S1, S2 Lungs - bilateral rhonchi improved Abdomen - Bowel sounds positive, soft, non-tender Extremities - without edema Results Last 24 Hrs of Lab Results: Laboratory Tests 11/05/17 0800: PT 12.7 H, INR 1.16, APTT 32, CBC w Diff NO MAN DIFF REQ, RBC 3.72 L, MCV 93.6 , MCH 31.5 H, MCHC 33.7, RDW 13.1, MPV 8.8, Gran % 89.2 H, Lymphocytes % 10.1 L, Monocytes % 0.7 L, Eosinophils % 0, Basophils % 0, Absolute Granulocytes 8.0 H, Absolute Lymphocytes 0.9 L, Absolute Monocytes 0.1, Absolute Eosinophils 0, Absolute Basophils 0 Impression/Plan Impression/Plan Impression/Plan: Impression 82 year old woman * acute hypoxemic respiratory failure - this can be secondary to an exacerbation of COPD along with atelectasis due to inactivity Plan -REDUCE solumedrol 40mg iv q12h - can transition to po prednisone tomorrow -trc/nebs -mucomyst nebulized bid - can stop upon discharge -continue abx - check sputum culture -f/u cardiology input -please obtain relevant imaging/cardio/pulmonary records from [facility] DVT prophylaxis at all times
--- NOTE | 2017-11-05 11:26 | PN- Att Addend ---
Attending Addendum Attending Brief Note Patient seen and examined, left hand continues to improve but breathing status is still not back to baseline although it is improving. O2 requirement is better. There was some bleeding from her mouth during the night. Vital Signs Date Time Temp Pulse Resp B/P B/P Pulse O2 O2 Flow FiO2 Mean Ox Delivery Rate 11/05 0853 93 Nasal 4.0L Cannula 11/05 0831 62 130/100 11/05 0623 97.8 60 20 160/62 92 Nasal 4.0L Cannula 11/04 2342 Nasal 4.0L Cannula 11/04 2205 98.7 56 18 142/80 92 Nasal 4.0L Cannula 11/04 1845 98 Nasal 6.0L Cannula 11/04 1600 91 Nasal 6.0L Cannula 11/04 1342 98.8 60 20 130/70 97 Nasal 6.0L Cannula on exam; aox3, nad. heent: The upper palate does not have any significant sores. cv; s1,s2, rrr resp; some rhonchi. abd; soft, nt, bs+ ext; no edema Laboratory Tests 11/05 0800 Coagulation PT (9.4 - 12.5 SEC) 12.7 H INR (0.90 - 1.19) 1.16 APTT (25 - 37 SEC) 32 Hematology CBC w Diff NO MAN DIFF REQ WBC (4.8 - 10.8 /CUMM) 9.0 RBC (4.20 - 5.40 /CUMM) 3.72 L Hgb (12.0 - 16.0 G/DL) 11.7 L Hct (37 - 47 %) 34.8 L MCV (81.0 - 99.0 FL) 93.6 MCH (27.0 - 31.0 PG) 31.5 H MCHC (33.0 - 37.0 G/DL) 33.7 RDW (11.5 - 14.5 %) 13.1 Plt Count (130 - 400 /CUMM) 359 MPV (7.4 - 10.4 FL) 8.8 Gran % (42.2 - 75.2 %) 89.2 H Lymphocytes % (20.5 - 51.1 %) 10.1 L Monocytes % (1.7 - 9.3 %) 0.7 L Eosinophils % (0 - 5 %) 0 Basophils % (0.0 - 2.0 %) 0 Absolute Granulocytes (1.4 - 6.5 /CUMM) 8.0 H Absolute Lymphocytes (1.2 - 3.4 /CUMM) 0.9 L Absolute Monocytes (0.10 - 0.60 /CUMM) 0.1 Absolute Eosinophils (0.0 - 0.7 /CUMM) 0 Absolute Basophils (0.0 - 0.2 /CUMM) 0 A/P: 82 y/o F with pmh sig for CAD s/p triple bypass (2009 [place]), left carotid stenosis, DM, HTN, COPD not on home oxygen, admitted with left hand cellulitis 2 /2 to cat bite. Overall better. We'll continue to biotics for 2 more days per infectious disease. Will taper the steroids. Steroids seem to help. Please check sputum culture if available. We'll follow-up for the cardiology recommendations. Oxygen requirement improving and will continue to taper as she can tolerate. Continue TRC nebs. Patient willing to go to rehabilitation and hopefully in the next 24 hours if continues to improve. Bleeding from the mouth could be secondary to very high oxygen leading to dryness of the nasal mucous membranes with postnasal drip coming out as a bleeding. DVT px; ALPS as lovenox discontinued 2/2 to bleed.
[2017-11-05 15:28] VITALS: BP 130/60
--- NOTE | 2017-11-05 15:30 | ECHOCARDIOGRAM REPORT ---
CELENA ROSENBERG Age: 82 : 1935 Gender: F Exam Date: 11/04/2017 11:18 Exam Location: [address] [place] [address] A Ht (in): 60 Wt (lb): 155 BSA: 1.75 BP: 104 / 60 Ordering Physician: Alton Campuzano MD Referring Physician: Amber Vieira MD Technologist: Charito Mahan Room Number: 220 -01 Indications: SHORTNESS OF BREATH Rhythm: Sinus Technical Quality: Fair FINDINGS Left Ventricle Normal size left ventricle. Mild concentric left ventricular hypertrophy. No obvious regional wall motion abnormalities. Normal left ventricular ejection fraction visually estimated at 60%. "pseudonormal" filling pattern of the left ventricle for age (stage 2 diastolic dysfunction). False chordae in the left ventricle (normal variant). Right Ventricle Normal right ventricular size and function. Right Atrium Normal right atrial size. Left Atrium Mild left atrial dilatation. Mitral Valve Mild mitral annular calcification. Mitral valve mildly thickened. Trace mitral regurgitation. Aortic Valve Not well visualized. Mild aortic sclerosis. No aortic valve stenosis or regurgitation. Tricuspid Valve Structurally normal tricuspid valve. Trace tricuspid regurgitation. Moderate pulmonary hypertension. Right ventricular systolic pressure estimated to be elevated at 59 mmHg. Pulmonic Valve Pulmonic valve not well visualized, grossly normal. Trace pulmonic regurgitation. Pericardium No pericardial effusion. Great Vessels Normal size ascending aorta. CONCLUSIONS Normal size left ventricle. Mild concentric left ventricular hypertrophy. Normal left ventricular ejection fraction visually estimated at 60%. "pseudonormal" filling pattern of the left ventricle for age (stage 2 diastolic dysfunction). Normal right ventricular size and function. Normal right atrial size. Mild left atrial dilatation. Trace mitral regurgitation. Trace tricuspid regurgitation. Moderate pulmonary hypertension. Trace pulmonic regurgitation. Inocente Case M.D. (Electronically Signed) Final Date: 05 November 2017 15:30 MEASUREMENTS (Male / Female) Normal Values 2D ECHO LV Diastolic Diameter PLAX 4.3 cm 4.2 - 5.9 / 3.9 - 5.3 cm LV Systolic Diameter PLAX 2.9 cm 2.1 - 4.0 cm LV Fractional Shortening PLAX 32.6 % 25 - 46 % LV Ejection Fraction 2D Teich 61.2 % IVS Diastolic Thickness 1.2 cm LVPW Diastolic Thickness 0.9 cm LV Relative Wall Thickness 0.5 RV Internal Dim ED PLAX 2.2 cm 1.9 - 3.8 cm LVOT Diameter 1.6 cm LA Systolic Diameter LX 4.5 cm 3.0 - 4.0 / 2.7 - 3.8 cm LA Volume 55.0 cm 18 - 58 / 22 - 52 cm Ascending Aorta Diameter 2.6 cm DOPPLER AV Peak Velocity 144.0 cm/s AV Peak Gradient 8.3 mmHg AV Mean Velocity 103.0 cm/s AV Mean Gradient 5.0 mmHg AV Velocity Time Integral 40.3 cm LVOT Peak Velocity 93.0 cm/s LVOT Peak Gradient 3.5 mmHg LVOT Mean Velocity 67.9 cm/s LVOT Mean Gradient 2.0 mmHg LVOT Velocity Time Integral 23.9 cm LVOT Stroke Volume 48.1 cm AV Area Cont Eq vti 1.2 cm AV Area Cont Eq pk 1.3 cm MV Peak Velocity 151.0 cm/s MV Peak Gradient 9.1 mmHg MV Mean Velocity 74.6 cm/s MV Mean Gradient 3.0 mmHg Mitral E Point Velocity 134.0 cm/s Mitral A Point Velocity 97.1 cm/s Mitral E to A Ratio 1.4 MV PHT Velocity 149.0 cm/s MV Deceleration [place] 514.0 cm/s MV Pressure Half Time 87.0 ms MV Area PHT 2.5 cm MV Deceleration Time 194.0 ms TR Peak Velocity 349.0 cm/s TR Peak Gradient 48.7 mmHg Right Atrial Pressure 10.0 mmHg Pulmonary Artery Systolic Pressu 58.7 mmHg Right Ventricular Systolic Press 58.7 mmHg PV Peak Velocity 94.0 cm/s PV Peak Gradient 3.5 mmHg PV Mean Velocity 67.3 cm/s PV Mean Gradient 2.0 mmHg PV Velocity Time Integral 24.4 cm LV E' Lateral Velocity 7.0 cm/s Mitral E to LV E' Lateral Ratio 19.3 LV E' Septal Velocity 3.9 cm/s Mitral E to LV E' Septal Ratio 34.4
[2017-11-05 21:38] VITALS: BP 124/60
[2017-11-06 06:20] VITALS: BP 130/68
--- NOTE | 2017-11-06 09:08 | PN- Housestaff ---
Venkatesh NOBLE,[facility] 11/06/17 0908: Subjective Follow-up For: Cat bite cellulitis R ankle pain ?gout Pleural effusion/SOB due to fluid overload Subjective: No acute events overnight. States breathing improved. L hand cellulitis and swelling improved. Ankle pain resolved Review of Systems Constitutional: Reports: see HPI. Objective Last 24 Hrs of Vital Signs/I&O Vital Signs Date Time Temp Pulse Resp B/P B/P Pulse O2 O2 Flow FiO2 Mean Ox Delivery Rate 11/06 0851 93 Nasal 4.0L Cannula 11/06 0620 97.8 61 20 130/68 95 Nasal Cannula 11/06 0000 Nasal 4.0L Cannula 11/05 2138 98.6 62 20 124/60 94 11/05 1926 94 Nasal 4.0L Cannula 11/05 1600 95 Nasal 4.0L Cannula 11/05 1528 97.9 60 20 130/60 96 Intake & Output 11/06 1600 11/06 0800 11/06 0000 Intake Total 240 800 Output Total 300 600 Balance -60 200 Intake, Oral 240 800 Output, Urine 300 600 Patient 156 lb Weight Weight Bed scale Measurement Method Physical Exam General Appearance: Alert, Oriented X3, Cooperative, No Acute Distress Cardiovascular: Regular Rate, Normal S1, Normal S2 Lungs: Normal Air Movement, no basilar crackles Abdomen: Normal Bowel Sounds, Soft, No Tenderness Extremities: no lower extremity edema or ankle tenderness Vascular: 2+ radial pulses Current Medications: Current Medications Sig/Romy Start time Last Medication Dose Route Stop Time Status Admin Acetaminophen 650 MG Q6-PRN PRN 11/02 1100 AC PO Acetylcysteine 2 ML BID 11/04 1357 AC 11/06 INH 0850 Albuterol Sulfate 3 ML BID 10/31 2100 AC 11/06 INH 0850 Amlodipine Besylate 5 MG DAILY 10/29 1000 AC 11/05 PO 0833 Amoxicillin/ 875 MG Q12 11/03 2100 AC 11/05 Clavulanate Potassium PO 2152 Atenolol 50 MG DAILY 10/28 2153 AC 11/05 PO 0831 Atorvastatin Calcium 40 MG QPM 10/28 2200 AC 11/05 PO 2152 Budesonide/ 2 PUF BID 10/28 220 AC 11/05 Formoterol Fumarate INH 215 Citalopram 20 MG DAILY 10/28 2153 AC 11/05 Hydrobromide PO 0830 Clopidogrel Bisulfate 75 MG DAILY 10/29 1000 AC 11/05 PO 0833 Furosemide 40 MG ONCE ONE 11/05 1345 DC 11/05 IV 11/05 1346 1434 Gabapentin 900 MG TID 10/28 2200 AC 11/05 PO 2151 Guaifenesin 5 ML ONCE ONE 11/06 0130 DC 11/06 PO 11/06 0131 0520 Guaifenesin 600 MG BID 10/30 1000 AC 11/05 PO 2152 Insulin Aspart 0 TIDAC 10/29 0800 AC 11/06 SC 0751 Lactobacillus 1 CAP DAILY 10/29 1000 AC 11/05 Acidophilus PO 0833 Loratadine 10 MG DAILY 10/30 0913 AC 11/05 PO 0832 Methylprednisolone 40 MG DAILY 11/06 0900 AC IV Methylprednisolone 40 MG Q12 11/05 2100 DC 11/05 IV 2151 Tramadol HCl 50 MG Q6 10/29 1200 AC 11/06 PO 0519 Last 24 Hrs of Lab/Kendrick Results Last 24 Hrs of Labs/Mics: Laboratory Tests 11/06/17 0631: Sodium Pending, Potassium Pending, Chloride Pending, Carbon Dioxide Pending, Anion Gap Pending, BUN Pending, Creatinine Pending, BUN/Creatinine Ratio Pending Microbiology 11/05 1645 LOWER RESP: Respiratory Culture - CAN Cancelled: NUMBER OF SQUAMOUS CELLS INDICATES POOR QUALITY SPECIMEN 11/05 1645 LOWER RESP: Gram Stain - CAN Cancelled: NUMBER OF SQUAMOUS CELLS INDICATES POOR QUALITY SPECIMEN Assessment/Plan Assessment: 82 yo f with a PMH significant for CAD s/p triple bypass (2009 [place]), left carotid stenosis, DM, HTN, COPD not on home oxygen who presents to the ED after a cat bite with worsening swelling while on oral Augmentin x2 days. Problem list: Left hand cat bite with cellulitis Shortness of breath ?fluid overload History of gout Plan: -Repeat chest x-ray: 1. No significant change in appearance of the lungs. Consistent with central vascular congestion superimposed upon chronic lung disease. No significant change in atelectatic changes in the right lung base. -decreased steroids qdaily switch to by mouth tomorrow -Complete Augmentin course today -monitor I/o, daily weights -F/U cardiology consult -pulm consulted: Start IV Solu-Medrol, TRC nebs, Mucomyst, -echo: EF 60%. stage 2 diastolic failure. moderate pulm htn -ProBNP elevated 854 -CTA negative for PE. ?Pna - will watch off abx as no fever or leukocytosis -cont tylenol for pain -SOB 2/2 to fluid congestion. IV lasix 20 x5 and 40IV x1 given thus far. -ankle XR: 1. Mild osteoarthrosis.2. Nonspecific mild periarticular soft tissue swelling.3. Arterial calcifications.4. Large posterior superior and small posterior plantar calcaneal spurs. -hand xr: Soft tissue swelling of dorsum of hand. No evidence for osteomyelitis. -wrist xr: No radiographic evidence of any osteomyelitis or soft tissue abscess. No significant change since prior study dated 10/28/2017 -Continue incentive spirometry, fexofenadine that she takes at home, Mucinex for congestion -cont probiotic for loose stool. Will consider C. difficile if she continues to have loose stool. -seen by plastics. outpatient f.u -f/u blood cx -Accu-Cheks and NovoLog sliding scale -Continue home meds DVT ppx: ALPS due to bleeding Code: FULL Problem List: 1. Pulmonary congestion 2. Right ankle pain 3. Shortness of breath 4. Cat bite of left hand 5. Cellulitis of left hand 6. Left knee pain Pain Ratin Pain Location: left hand Pain Goal: Pain 4 or less Pain Plan: pathway Tomorrow's Labs & Rationales: micheal Quiles MD,[facility] 11/06/17 1043: Attending MD Review Statement Attending Statement Attending MD Statement: examined this patient, discuss w/resident/PA/LEAK HUNTER, agreed w/resident/PA/LEAK HUNTER, reviewed EMR data (avail), discussed with nursing, discussed with case mgmt, reviewed images, amended to note Attending Assessment/Plan: Patient seen and examined, overall doing better. Now requiring 4 L of oxygen. Oxygen saturation was 95%. Left hand is now completely almost back to normal. Vital Signs Date Time Temp Pulse Resp B/P B/P Pulse O2 O2 Flow FiO2 Mean Ox Delivery Rate 11/06 1016 61 130/68 11/06 1015 61 130/68 11/06 0851 93 Nasal 4.0L Cannula 11/06 0620 97.8 61 20 130/68 95 Nasal Cannula 11/06 0000 Nasal 4.0L Cannula 11/058 98.6 62 20 124/60 94 11/05 1926 94 Nasal 4.0L Cannula 11/05 1600 95 Nasal 4.0L Cannula 11/05 1528 97.9 60 20 130/60 96 on exam; aox3, nad. cv; s1, s2, rrr resp; mild wheeze. abd; soft, nt, bs+ ext; no edema Laboratory Tests 11/06 0631 Chemistry Sodium (137 - 145 mmol/L) 140 Potassium (3.5 - 5.1 mmol/L) 4.4 Chloride (98 - 107 mmol/L) 99 Carbon Dioxide (22 - 30 mmol/L) 30 Anion Gap (5 - 16) 11 BUN (7 - 17 mg/dL) 30 H Creatinine (0.5 - 1.0 mg/dL) 0.8 Estimated GFR (>60 ml/min) > 60 BUN/Creatinine Ratio (7 - 25 %) 37.5 H A/P; 82 y/o F with pmh sig for CAD s/p triple bypass (2009 [place]), left carotid stenosis, DM, HTN, COPD not on home oxygen, admitted with left hand cellulitis 2 /2 to cat bite which has improved significantly. During the hospital course patient had developed significant hypoxia, acute severe exacerbation and fluid overload with mild exacerbation of acute diastolic CHF exacerbation. Patient has diuresed. Patient has been started on IV steroids. Creatinine remained stable. Will cut back on steroids to IV Solu-Medrol 40 mg daily today. Likely switch to oral prednisone tomorrow. Will try to taper her oxygen. Will finish oral augmentin. Continue TRC nebs, other current nebs. DVT px; ALPS. Lovenox was discontinued 2/2 to an episode of hemoptysis. Possible discharge to [facility] tomorrow.
--- NOTE | 2017-11-06 11:37 | PN- Pulmonary ---
Subjective HPI/Critical Care Issues: pt seen and examined feeling better Objective Current Medications: Current Medications Sig/Romy Start time Last Medication Dose Route Stop Time Status Admin Acetaminophen 650 MG Q6-PRN PRN 11/02 1100 AC PO Acetylcysteine 2 ML BID 11/04 1357 AC 11/06 INH 0850 Albuterol Sulfate 3 ML BID 10/31 2100 AC 11/06 INH 0850 Amlodipine Besylate 5 MG DAILY 10/29 1000 AC 11/06 PO 1016 Amoxicillin/ 875 MG Q12 11/03 2100 AC 11/06 Clavulanate Potassium PO 1016 Atenolol 50 MG DAILY 10/28 2153 AC 11/06 PO 1015 Atorvastatin Calcium 40 MG QPM 10/28 2200 AC 11/05 PO 2152 Budesonide/ 2 PUF BID 10/28 2200 AC 11/06 Formoterol Fumarate INH 1015 Citalopram 20 MG DAILY 10/28 2153 AC 11/06 Hydrobromide PO 1016 Clopidogrel Bisulfate 75 MG DAILY 10/29 1000 AC 11/06 PO 1015 Furosemide 40 MG ONCE ONE 11/05 1345 DC 11/05 IV 11/05 1346 1434 Gabapentin 900 MG TID 10/28 2200 AC 11/06 PO 1016 Guaifenesin 5 ML ONCE ONE 11/06 0130 DC 11/06 PO 11/06 0131 0520 Guaifenesin 600 MG BID 10/30 1000 AC 11/06 PO 1016 Insulin Aspart 0 TIDAC 10/29 0800 AC 11/06 SC 0751 Lactobacillus 1 CAP DAILY 10/29 1000 AC 11/06 Acidophilus PO 1015 Loratadine 10 MG DAILY 10/30 0913 AC 11/06 PO 1016 Methylprednisolone 40 MG DAILY 11/06 0900 AC 11/06 IV 1016 Methylprednisolone 40 MG Q12 11/05 2100 DC 11/05 IV 2151 Tramadol HCl 50 MG Q6 10/29 1200 AC 11/06 PO 0519 Vital Signs & I&O Last 24 Hrs of Vitals and I&O: Vital Signs Date Time Temp Pulse Resp B/P B/P Pulse O2 O2 Flow FiO2 Mean Ox Delivery Rate 11/06 1129 Nasal 6.0L Cannula 11/06 1016 61 130/68 11/06 1015 61 130/68 11/06 0851 93 Nasal 4.0L Cannula 11/06 0800 Nasal 4.0L Cannula 11/06 0620 97.8 61 20 130/68 95 Nasal Cannula 11/06 0000 Nasal 4.0L Cannula 11/05 2138 98.6 62 20 124/60 94 11/05 1926 94 Nasal 4.0L Cannula 11/05 1600 95 Nasal 4.0L Cannula 11/05 1528 97.9 60 20 130/60 96 Intake & Output 11/06 1600 11/06 0800 11/06 0000 Intake Total 240 800 Output Total 300 600 Balance -60 200 Intake, Oral 240 800 Output, Urine 300 600 Patient 156 lb Weight Weight Bed scale Measurement Method Exam Other Physical Findings: Generally - awake Head and neck -nasal cannula Cardiovascular - S1, S2 Lungs - bilateral rhonchi improved Abdomen - Bowel sounds positive, soft, non-tender Extremities - without edema Results Last 24 Hrs of Lab Results: Laboratory Tests 11/06/17 0631: Anion Gap 11, Estimated GFR > 60, BUN/Creatinine Ratio 37.5 H Impression/Plan Impression/Plan Impression/Plan: Impression 82 year old woman * acute hypoxemic respiratory failure - this can be secondary to an exacerbation of COPD along with atelectasis due to inactivity Plan -transition to prednisone and taper -trc/nebs -continue abx - check sputum culture -f/u cardiology input -f/u with primary billing analyst at [facility] upon dc call with any questions DVT prophylaxis at all times
--- NOTE | 2017-11-06 11:45 | RADIOLOGY REPORT ---
EXAMINATION: XR CHEST CLINICAL INFORMATION: Pulmonary edema. Fluid overload. COMPARISON: Multiple prior chest x-rays, most recent of which is dated 11/01/2017. CTA of the chest dated 11/03/2017. TECHNIQUE: AP and lateral views of the chest were obtained. FINDINGS: The patient is status post median sternotomy. The cardiomediastinal silhouette is enlarged, unchanged. Calcification of the aortic arch is seen. Lungs are bilaterally symmetrically expanded and demonstrate slight thickening of the central airways and slight diffuse reticular prominence of the lungs. This appearance is unchanged compared to the prior exam and is consistent with mild central vascular congestion superimposed upon chronic lung disease. Mild linear atelectatic changes in the right lower lobe medially persist. Lungs are otherwise unremarkable. No pleural effusion or pneumothorax is seen. Diffuse osteopenia and multilevel moderate vertebral spondylosis is noted. There is also fragmentation, sclerosis and deformity of the left shoulder joint, only partially included, perhaps related to degenerative change superimposed upon avascular necrosis. Moderate degenerative changes also seen in the right glenohumeral joint. IMPRESSION: 1. No significant change in appearance of the lungs compared to 11/01/2017. Findings are most consistent with central vascular congestion superimposed upon chronic lung disease. No definite evidence of pulmonary edema. 2. No significant change in atelectatic changes in the right lung base.
[2017-11-06 14:56] VITALS: BP 134/68
[2017-11-06 22:16] VITALS: BP 162/64
[2017-11-06 23:30] VITALS: BP 158/70
--- NOTE | 2017-11-07 00:16 | RADIOLOGY REPORT ---
EXAMINATION: XR PORTABLE CHEST CLINICAL INFORMATION: Angina. Rule out fluid overload. COMPARISON: 11/06/2017 TECHNIQUE: Portable frontal view of the chest was obtained. FINDINGS: Median sternotomy wires appear intact. Hazy opacity at the left base likely due to overlying soft tissues. No overt edema. No significant pleural effusion. No dense consolidation. No pneumothorax. The cardiomediastinal silhouette is unchanged. Severe degenerative changes at the left glenohumeral joint. IMPRESSION: No acute pulmonary finding.
[2017-11-07 06:17] VITALS: BP 168/72
[2017-11-07 08:22] LABS: ABSOLUTE BASOPHIL COUNT 0 /CUMM (0.0-0.2); ABSOLUTE EOSINOPHIL COUNT 0 /CUMM (0.0-0.7); BASOPHIL % 0.1 % (0.0-2.0); EOSINOPHIL % 0 % (0-5); RBC DISTRIBUTION WIDTH 13.5 % (11.5-14.5)
[2017-11-07 08:30] LABS: ABSOLUTE GRANULOCYTE CT 12.2 /CUMM (1.4-6.5); ABSOLUTE LYMPH COUNT 1.8 /CUMM (1.2-3.4); ABSOLUTE MONOCYTE COUNT 0.6 /CUMM (0.10-0.60); HEMATOCRIT 35.1 % (37-47); MEAN CORPUSCULAR HGB 31.2 PG (27.0-31.0); MEAN CORPUSCULAR HGB CONC 33.2 G/DL (33.0-37.0); MEAN CORPUSCULAR VOLUME 93.9 FL (81.0-99.0); MEAN PLATELET VOLUME 8.9 FL (7.4-10.4); PLATELET COUNT 395 /CUMM (130-400); RED BLOOD CELL CT 3.73 /CUMM (4.20-5.40)
[2017-11-07 08:32] LABS: WHITE BLOOD CELL COUNT 14.6 /CUMM (4.8-10.8)
[2017-11-07 08:52] LABS: GRANULOCYTE % 83.8 % (42.2-75.2)
--- NOTE | 2017-11-07 09:11 | PN- Housestaff ---
Subjective Follow-up For: Cat bite cellulitis R ankle pain ?gout Pleural effusion/SOB due to fluid overload Subjective: Patient had an acute event of chest pain last night. Troponins and EKG were negative for ACS. States that the chest pain is now better this morning. Review of Systems Constitutional: Reports: see HPI. Objective Last 24 Hrs of Vital Signs/I&O Vital Signs Date Time Temp Pulse Resp B/P B/P Pulse O2 O2 Flow FiO2 Mean Ox Delivery Rate 11/07 1307 80 134/70 11/07 1257 97.8 54 16 148/72 11/07 0900 94 Nasal 3.0L Cannula 11/07 0808 97.8 54 16 168/72 11/07 0807 97.8 54 16 168/72 11/07 0800 Nasal 2.0L Cannula 11/07 0617 97.8 54 16 168/72 93 Nasal 3.0L Cannula 11/07 0000 93 Nasal 3.0L Cannula 11/06 2330 62 22 158/70 93 Nasal 3.0L Cannula 11/06 2216 98.8 60 16 162/64 95 Nasal 3.0L Cannula 11/06 1835 94 Nasal 3.5L Cannula Intake & Output 11/07 1600 11/07 0800 11/07 0000 Intake Total 360 150 Output Total 400 225 250 Balance -400 135 -100 Intake, IV 10 Intake, Oral 360 140 Output, Urine 400 225 250 Patient 157 lb Weight Physical Exam General Appearance: Alert, Oriented X3, Cooperative Skin: improve erythema and swelling left hand. Cardiovascular: Regular Rate, Normal S1, Normal S2 Lungs: left mid and basal crackles on inspiration Abdomen: Normal Bowel Sounds, Soft, No Tenderness Extremities: no ankle tenderness to palpation Current Medications: Current Medications Sig/Romy Start time Last Medication Dose Route Stop Time Status Admin Acetaminophen 650 MG Q6-PRN PRN 11/02 1100 DCD PO Acetylcysteine 2 ML BID 11/04 1357 DCD 11/07 INH 0859 Albuterol Sulfate 3 ML BID 10/31 2100 DCD 11/07 INH 0859 Amlodipine Besylate 5 MG DAILY 10/29 1000 DCD 11/07 PO 0807 Amoxicillin/ 875 MG Q12 11/07 0900 CAN Clavulanate Potassium PO Amoxicillin/ 875 MG Q12 11/03 2100 DC 11/06 Clavulanate Potassium PO 11/07 0000 2034 Atenolol 50 MG DAILY 10/28 2152 DCD 11/07 PO 0808 Atorvastatin Calcium 40 MG QPM 10/28 2199 DCD 11/06 PO 2034 Budesonide/ 2 PUF BID 10/28 2199 DCD 11/07 Formoterol Fumarate INH 0808 Citalopram 20 MG DAILY 10/28 2152 DCD 11/07 Hydrobromide PO 0807 Clopidogrel Bisulfate 75 MG DAILY 10/29 1000 DCD 11/07 PO 0808 Gabapentin 900 MG TID 10/28 2199 DCD 11/07 PO 0807 Guaifenesin 10 ML Q6P PRN 11/06 1315 DCD PO Guaifenesin 600 MG BID 10/30 1000 DCD 11/07 PO 0807 Insulin Aspart 0 TIDAC 10/29 0800 DCD 11/06 SC 1739 Lactobacillus 1 CAP DAILY 10/29 1000 DCD 11/07 Acidophilus PO 0808 Loratadine 10 MG DAILY 10/30 0913 DCD 11/07 PO 0807 Methylprednisolone 40 MG DAILY 11/07 0900 CAN IV Patient Medication 1 ED ONE 11/07 0000 NR Teaching ED 11/07 2359 Prednisone 40 MG DAILY 11/07 0900 DCD 11/07 PO 0808 Tramadol HCl 50 MG Q6 10/29 1200 DCD 11/07 PO 0548 Last 24 Hrs of Lab/Kendrick Results Last 24 Hrs of Labs/Mics: Laboratory Tests 11/07/17 0935: CBC w Diff NO MAN DIFF REQ, RBC 3.95 L, MCV 94.6, MCH 30.3, MCHC 32.0 L, RDW 13.7, MPV 9.0, Gran % 82.5 H, Lymphocytes % 13.2 L, Monocytes % 3.9, Eosinophils % 0.2, Basophils % 0.2, Absolute Granulocytes 10.9 H, Absolute Lymphocytes 1.8, Absolute Monocytes 0.5, Absolute Eosinophils 0, Absolute Basophils 0 11/07/17 0608: CBC w Diff NO MAN DIFF REQ, RBC 3.73 L, MCV 93.9, MCH 31.2 H, MCHC 33.2, RDW 13.5, MPV 8.9, Gran % 83.8 H, Lymphocytes % 12.2 L, Monocytes % 3.9, Eosinophils % 0, Basophils % 0.1, Absolute Granulocytes 12.2 H, Absolute Lymphocytes 1.8, Absolute Monocytes 0.6, Absolute Eosinophils 0, Absolute Basophils 0 11/06/17 2334: Troponin I < 0.01 Assessment/Plan Assessment: 82 yo f with a PMH significant for CAD s/p triple bypass (2009 [place]), left carotid stenosis, DM, HTN, COPD not on home oxygen who presents to the ED after a cat bite with worsening swelling while on oral Augmentin x2 days. Problem list: Left hand cat bite with cellulitis Shortness of breath ?fluid overload History of gout Plan: -Discharge to [facility] today -Switch to oral prednisone taper. Continue Robitussin for cough -Completed Augmentin course -monitor I/o, daily weights -F/U cardiology recommendations -Continue pulmonology recommendations -Repeat chest x-ray: 1. No significant change in appearance of the lungs. Consistent with central vascular congestion superimposed upon chronic lung disease. No significant change in atelectatic changes in the right lung base. -echo: EF 60%. stage 2 diastolic failure. moderate pulm htn -ProBNP elevated 854 -CTA negative for PE. ?Pna - will watch off abx as no fever or leukocytosis -cont tylenol for pain -SOB 2/2 to fluid congestion. IV lasix 20 x5 and 40IV x1 given thus far. -ankle XR: 1. Mild osteoarthrosis.2. Nonspecific mild periarticular soft tissue swelling.3. Arterial calcifications.4. Large posterior superior and small posterior plantar calcaneal spurs. -hand xr: Soft tissue swelling of dorsum of hand. No evidence for osteomyelitis. -wrist xr: No radiographic evidence of any osteomyelitis or soft tissue abscess. No significant change since prior study dated 10/28/2017 -Continue incentive spirometry, fexofenadine that she takes at home, Mucinex for congestion -cont probiotic for loose stool. Will consider C. difficile if she continues to have loose stool. -seen by plastics. outpatient f.u -f/u blood cx -Accu-Cheks and NovoLog sliding scale -Continue home meds DVT ppx: ALPS due to bleeding Code: FULL Problem List: 1. Pulmonary congestion 2. Shortness of breath 3. Cat bite of left hand 4. Cellulitis of left hand Pain Ratin Pain Location: none Pain Goal: Pain 4 or less Pain Plan: pathway Tomorrow's Labs & Rationales: none
--- NOTE | 2017-11-07 10:54 | Patient Discharge Instructions ---
Discharge Instructions General Discharge Information You were seen/treated for: cellulitis COPD exacerbation Special Instructions: Please follow up with your PCP in a week Please follow up with the automatic mounter in a week Please complete steroid taper as directed Diet Continue normal diet: Yes Activity Activity Self Limited: Yes Acute Coronary Syndrome Inclusion Criteria At DC or during hospital stay patient has or had the following: ACS DIAGNOSIS No Discharge Core Measures Meds if any: Prescribed or Continued at Discharge Meds if any: NOT Prescribed or Continued at Discharge Congestive Heart Failure Inclusion Criteria At DC or during hospital stay patient has or had the following: CHF DIAGNOSIS No Discharge Core Measures Meds if any: Prescribed or Continued at Discharge Meds if any: NOT Prescribed or Continued at Discharge Cerebrovascular accident Inclusion Criteria At DC or during hospital stay patient has or had the following: CVA/TIA Diagnosis No Discharge Core Measures Meds if any: Prescribed or Continued at Discharge Meds if any: NOT Prescribed or Continued at Discharge Venous thromboembolism Inclusion Criteria VTE Diagnosis No VTE Type NONE VTE Confirmed by (Test) NONE Discharge Core Measures - Per Current guidelines, there needs to be overlap - treatment for the first 5 days of Warfarin therapy. - If discharged on Warfarin prior to 5 days of - overlap therapy, the patient will need to be - assessed for post discharge needs including - *Post discharge parental anticoagulation - *Warfarin and/or parental anticoagulation education - *Follow up date to check INR post discharge At least 5 days overlap therapy as Inpatient No Meds if any: Prescribed or Continued at Discharge Note: Overlap Therapy is Warfarin and Anticoagulant Meds if any: NOT Prescribed or Continued at Discharge
--- NOTE | 2017-11-07 11:04 | PN- Att Addend ---
Attending Addendum Attending Brief Note Patient seen and examined, overall doing much better. Lastly she has some chest pain which is improved overnight. Troponins and EKG were negative. Patient had a recent echo which does show that she has diastolic dysfunction patient has received diuresis since admission. She does have leukocytosis this morning. Vital Signs Date Time Temp Pulse Resp B/P B/P Pulse O2 O2 Flow FiO2 Mean Ox Delivery Rate 11/07 0900 94 Nasal 3.0L Cannula 11/07 0808 97.8 54 16 168/72 11/07 0807 97.8 54 16 168/72 11/07 0800 Nasal 2.0L Cannula 11/07 0617 97.8 54 16 168/72 93 Nasal 3.0L Cannula 11/07 0000 93 Nasal 3.0L Cannula 11/06 2330 62 22 158/70 93 Nasal 3.0L Cannula 11/06 2216 98.8 60 16 162/64 95 Nasal 3.0L Cannula 11/06 1835 94 Nasal 3.5L Cannula 11/06 1600 Nasal 4.0L Cannula 11/06 1456 98.0 56 20 134/68 92 Nasal 4.0L Cannula 11/06 1129 Nasal 6.0L Cannula on exam; aox3, nad. cv; s1,s2, rrr resp; clear abd: soft, nt, bs+ ext; no edema Laboratory Tests 11/07 11/07 11/06 0935 [id number] [id number] Chemistry Troponin I (< 0.11 ng/ml) < 0.01 Hematology CBC w Diff Pending NO MAN DIFF REQ WBC (4.8 - 10.8 /CUMM) Pending 14.6 H RBC (4.20 - 5.40 /CUMM) Pending 3.73 L Hgb (12.0 - 16.0 G/DL) Pending 11.7 L Hct (37 - 47 %) Pending 35.1 L MCV (81.0 - 99.0 FL) Pending 93.9 MCH (27.0 - 31.0 PG) Pending 31.2 H MCHC (33.0 - 37.0 G/DL) Pending 33.2 RDW (11.5 - 14.5 %) Pending 13.5 Plt Count (130 - 400 /CUMM) Pending 395 MPV (7.4 - 10.4 FL) Pending 8.9 Gran % (42.2 - 75.2 %) 83.8 H Lymphocytes % (20.5 - 51.1 %) 12.2 L Monocytes % (1.7 - 9.3 %) 3.9 Eosinophils % (0 - 5 %) 0 Basophils % (0.0 - 2.0 %) 0.1 Absolute Granulocytes (1.4 - 6.5 /CUMM) 12.2 H Absolute Lymphocytes (1.2 - 3.4 /CUMM) 1.8 Absolute Monocytes (0.10 - 0.60 /CUMM) 0.6 Absolute Eosinophils (0.0 - 0.7 /CUMM) 0 Absolute Basophils (0.0 - 0.2 /CUMM) 0 A/P: 82 y/o F with pmh sig for CAD s/p triple bypass (2009 [place]), left carotid stenosis, DM, HTN, COPD not on home oxygen, admitted with left hand cellulitis 2 /2 to cat bite which has improved significantly. During the hospital course patient had developed significant hypoxia, acute copd exacerbation and fluid overload with mild exacerbation of acute diastolic CHF exacerbation. Discussed briefly with infectious disease. The increasing white blood cell count is likely secondary to steroids. We are repeating the CBC just to make sure. Chest pain could be secondary to esophageal spasm or muscle skeletal pain. Troponin and EKG were negative as reported. Patient has wished the course of antibiotics. Patient on prednisone taper. She can likely be discharged to rehabilitation today after cbc results are in.
[2017-11-07 11:29] LABS: ABSOLUTE BASOPHIL COUNT 0 /CUMM (0.0-0.2); ABSOLUTE EOSINOPHIL COUNT 0 /CUMM (0.0-0.7); ABSOLUTE GRANULOCYTE CT 10.9 /CUMM (1.4-6.5); ABSOLUTE LYMPH COUNT 1.8 /CUMM (1.2-3.4); ABSOLUTE MONOCYTE COUNT 0.5 /CUMM (0.10-0.60); BASOPHIL % 0.2 % (0.0-2.0); EOSINOPHIL % 0.2 % (0-5); GRANULOCYTE % 82.5 % (42.2-75.2); HEMATOCRIT 37.3 % (37-47); MEAN CORPUSCULAR HGB 30.3 PG (27.0-31.0); MEAN CORPUSCULAR VOLUME 94.6 FL (81.0-99.0); PLATELET COUNT 444 /CUMM (130-400); RBC DISTRIBUTION WIDTH 13.7 % (11.5-14.5); RED BLOOD CELL CT 3.95 /CUMM (4.20-5.40); WHITE BLOOD CELL COUNT 13.3 /CUMM (4.8-10.8)
[2017-11-07] MEDS ORDERED: CLARITIN10 M3 PO (11:42)
[2017-11-07] MEDS ORDERED: PREDNISONE10 M2 PO (11:58)
[2017-11-07] MEDS ORDERED: ROBITUSSIN15 MG PO (12:00)
[2017-11-07] MEDS ORDERED: ULTRAM50 M1 PO (12:09)
[2017-11-07 12:57] VITALS: BP 148/72
[2017-11-07 13:07] VITALS: BP 134/70
== END 2017-11-07 14:02 | DRG 602 ==
LOC: ERH 14:06 → ERHI 19:40 → 2NA 19:40 → ENRESERV 21:32 → ENTRNSPT 22:18 → EDTRNSPTSTS 22:30 → EDTRNSPT 22:30 → 2NA 22:33 → CMPTRNSPT 22:43 → 2NA 10-30 09:13 → ENPENDDIS 11-07 12:44 → 2NA 11-07 14:02
PROVIDERS: Emergency Medicine; Internal Medicine; Student in an Organized Health Care Education/Training Program
DX: L03.114 Cellulitis of left upper limb (principal); J96.01 Acute respiratory failure with hypoxia; I50.31 Acute diastolic (congestive) heart failure; J44.1 Chronic obstructive pulmonary disease with (acute) exacerbation; J98.11 Atelectasis; E11.8 Type 2 diabetes mellitus with unspecified complications; J44.9 Chronic obstructive pulmonary disease, unspecified; W55.01XA Bitten by cat, initial encounter; Z79.84 Long term (current) use of oral hypoglycemic drugs; I25.10 Atherosclerotic heart disease of native coronary artery without angina pectoris; Z95.1 Presence of aortocoronary bypass graft; M19.071 Primary osteoarthritis, right ankle and foot; E87.70 Fluid overload, unspecified; I11.0 Hypertensive heart disease with heart failure; I65.22 Occlusion and stenosis of left carotid artery; Z79.51 Long term (current) use of inhaled steroids; S61.452A Open bite of left hand, initial encounter; E66.9 Obesity, unspecified; Z68.30 Body mass index [BMI] 30.0-30.9, adult; E78.5 Hyperlipidemia, unspecified; T44.5X5A Adverse effect of predominantly beta-adrenoreceptor agonists, initial encounter; I73.9 Peripheral vascular disease, unspecified; Z95.9 Presence of cardiac and vascular implant and graft, unspecified; M25.562 Pain in left knee; M25.571 Pain in right ankle and joints of right foot
CPT/HCPCS: 2NASP; 36592; 71045; 71046; 73110-LT; 73130-LT; 73610-RT; 82436; 87040; 87070; 93005; 93010; 93306; 96374; 97110-GO; 97116-GO; 97162-GP; 97530-GO; J0131; J1650; J1940; J2920; J2930; J3490; J7608